=== PATIENT | female | born 1950 | race Caucasian/White ===

== ENCOUNTER 2019-05-16 14:53 | Outpatient (CLI) | payer MEDICARE, OTHER, SELFPAY ==
--- NOTE | ~2019-05-16 | US_ITS ---
EXAMINATION: US soft tissue head and neck DATE: 05/16/2019 15:18 INDICATION: Possible cervical lymphadenopathy with palpable abnormality at the right posterior neck. TECHNIQUE: Multiple grayscale and Doppler ultrasound images of the abdomen were obtained. COMPARISON: None FINDINGS/IMPRESSION: There are a couple small ovoid hypoechoic lesions in the subcutaneous fat at the region of concern at the right neck which measure 4 x 4 x 2 mm and 6 x 3 x 2 mm consistent with normal-sized lymph nodes. Reviewed, dictated and finalized at location A. ENT SUPERVISOR
== END 2019-05-16 14:54 | disposition home or self-care (01) ==
LOC: ANHIMG 14:59
PROVIDERS: PCP Family Medicine; Visit Provider Family Medicine
DX: R22.1 Localized swelling, mass and lump, neck (principal)
CPT/HCPCS: 76536

== ENCOUNTER 2019-11-13 11:26 | Outpatient (CLI) | payer MEDICARE, OTHER, SELFPAY ==
--- NOTE | ~2019-11-13 | MM_ITS ---
EXAMINATION: MM screening digna BI w michelet HISTORY: Screening TECHNIQUE: Craniocaudal and mediolateral oblique 3-D tomosynthesis images were obtained and synthetic 2-D images were generated. CAD analysis was submitted and interpreted. COMPARISON: Comparison to multiple prior studies sequentially, with oldest reviewed study dated 02/17. BREAST PARENCHYMAL COMPOSITION: The breasts are heterogeneously dense, which may obscure small masses . FINDINGS: There is no evidence of suspicious mass, calcification, or architectural distortion to sugg est malignancy in either breast. There has been no suspicious interval change. IMPRESSION: 1. No mammographic evidence of malignancy. 2. Recommend routine screening mammography in one year. BI-RADS Category 1: Negative Reviewed, dictated and finalized at location A.
== END 2019-11-13 11:27 | disposition home or self-care (01) ==
LOC: ANHIMG 11:27
PROVIDERS: PCP Family Medicine; Visit Provider Family Medicine
DX: Z12.31 Encounter for screening mammogram for malignant neoplasm of breast (principal)
CPT/HCPCS: 77063; 77067

== ENCOUNTER 2020-11-18 11:55 | Outpatient (CLI) | payer MEDICARE, OTHER, SELFPAY ==
--- NOTE | ~2020-11-18 | MM_ITS ---
EXAMINATION: MM screening digna BI w michelet HISTORY: Screening TECHNIQUE: Craniocaudal and mediolateral oblique 3-D tomosynthesis images were obtained and synthetic 2-D images were generated. CAD analysis was submitted and interpreted. COMPARISON: Comparison to multiple prior studies sequentially, with oldest reviewed study dated 07/14. BREAST PARENCHYMAL COMPOSITION: The breasts are heterogeneously dense, which may obscure small masses . FINDINGS: There is no evidence of suspicious mass, calcification, or architectural distortion to sugg est malignancy in either breast. There has been no suspicious interval change. IMPRESSION: 1. No mammographic evidence of malignancy. 2. Recommend routine screening mammography in one year. BI-RADS Category 1: Negative Reviewed, dictated and finalized at location D.
== END 2020-11-18 11:56 | disposition home or self-care (01) ==
LOC: ANHIMG 11:57
PROVIDERS: PCP Family Medicine; Visit Provider Family Medicine
DX: Z12.31 Encounter for screening mammogram for malignant neoplasm of breast (principal)
CPT/HCPCS: 77063; 77067

== ENCOUNTER 2020-11-19 13:22 | Outpatient (CLI) | payer MEDICARE, OTHER, SELFPAY ==
--- NOTE | ~2020-11-19 | XR_ITS ---
EXAMINATION: XR abdomen/kub 1V DATE: 11/19/2020 13:40 INDICATION: Low abdominal pain. TECHNIQUE: A supine view of the abdomen on 2 radiographs was obtained. COMPARISON: None. FINDINGS: There are no dilated loops of bowel. There is a large volume of stool in the colon. There a re calcifications in the pelvis measuring up to 3 mm. IMPRESSION: 1. Nonobstructive bowel gas pattern. 2. Small calcifications in the pelvis, which are likely phleboliths. Small distal ureteral stone rachel ot excluded on either side. Reviewed, dictated and finalized at location A. IMPRESSION: 1. Nonobstructive bowel gas pattern. 2. Small calcifications in the pelvis, which are likely phleboliths. Small dist al ureteral stone cannot excluded on either side.
== END 2020-11-19 13:23 | disposition home or self-care (01) ==
PROVIDERS: PCP Family Medicine; Visit Provider Family Medicine
DX: R19.8 Other specified symptoms and signs involving the digestive system and abdomen (principal)
CPT/HCPCS: 74018

== ENCOUNTER 2021-01-28 17:00 | Outpatient (CLI) | payer MEDICARE, OTHER, SELFPAY ==
--- NOTE | ~2021-01-28 | DEXA_ITS ---
Bone Density Report Name: Андрей Martinez Age: 70 Sex: Female Ethnicity: White Date of : 1950 Indication: postmenopausal; asthma or emphysema; Referring Provider: Renae An Study: Bone densitometry was performed. Exam Date: January 28, 2021 Accession number: [id number] Bone Density: Region BMD T-score Z-score Classification AP Spine (L1-L4) 1.030 -0.2 1.8 Normal Femoral Neck (Left) 0.742 -1.0 0.7 Normal Total Hip (Left) 0.911 -0.3 1.1 Normal Total Hip Bilateral Avg 0.894 -0.4 1.0 Normal Femoral Neck (Right) 0.744 -0.9 0.7 Normal Total Hip (Right) 0.877 -0.5 0.9 Normal World Health Organization criteria for BMD impression classify patients as: Normal (T-score at or above -1.0), Osteopenia (T-score between -1.0 and -2.5), or Osteoporosis (T-score at or below -2.5). 10-year Fracture Risk: FRAX not reported because: All T-scores for Spine Total, Hip Total, Femoral Neck at or above -1.0 Previous Exams: Region Exam Age BMD T-score BMD Change BMD Change Date g/cm2 vs Baseline vs Previous AP Spine(L1-L4) 01/28/2021 70 1.030 -0.2 0.019(1.9%)# 0.019(1.9%)# 02/28/2012 61 1.011 -0.3 Total Hip(Left) 01/28/2021 70 0.911 -0.3 -0.070(-7.2%)# -0.056(-5.8%)# 02/28/2012 61 0.967 0.2 -0.014(-1.4%)# -0.014(-1.4%)# 02/19/2009 58 0.981 0.3 Total Hip(Right) 01/28/2021 70 0.877 -0.5 -0.048(-5.1%)# -0.067(-7.1%)# 02/28/2012 61 0.944 0.0 0.020(2.1%)# 0.020(2.1%)# 02/19/2009 58 0.925 -0.1 *Denotes significance at 95% confidence level, LSC for AP Spine = 0.022 g/cm2, LSC for Total Hip = 0.027 g/cm2 Clinical Information Provided by Patient: Has used the following medications: Vitamin D Has the following medical conditions: Asthma or Emphysema Patient maximum height was 61 Menopause Age: 57 No regular weight bearing exercise Drinks caffeinated beverages Onset of menses at age 15 Number of children 4 Impression: The patient has normal bone mass. No significant bone loss was observed. Discussion: BONE DENSITY IS ABOVE THE MINIMUM DESIRABLE LEVEL AT ALL SKELETAL SITES TESTED. This patient?s bone mineral density is above the minimum desirable level (T-score -1.0 or better) at all sites measured. The patient should follow a healthful lifestyle (good nutrition with adequate calcium and vitamin D, and appropriate weight-bearing exercise). Follow-Up: Consider repeating this study in 5 years or sooner if there is some new
== END 2021-01-28 17:01 | disposition home or self-care (01) ==
LOC: ANHIMG 17:02
PROVIDERS: PCP Family Medicine; Visit Provider Family Medicine
DX: M81.0 Age-related osteoporosis without current pathological fracture (principal)
CPT/HCPCS: 77080

== ENCOUNTER → 2021-12-20 11:59 | Outpatient (CLI) | payer MEDICARE, OTHER, SELFPAY ==
--- NOTE | ~2021-12-20 | XR_ITS ---
EXAMINATION: XR chest 2V 12/20/2021 12:12 INDICATION: Shortness of breath PROCEDURE: PA and lateral views of the chest COMPARISON: No prior studies for comparison. FINDINGS: The lungs are clear. The cardiomediastinal silhouette is within normal limits. There are no pleural effusions. There is no pneumothorax suspected. IMPRESSION: 1: NO ACUTE CARDIOPULMONARY DISEASE. Reviewed, dictated and finalized at location A.
== END ==
PROVIDERS: PCP Nurse Practitioner; Visit Provider Nurse Practitioner
DX: R06.02 Shortness of breath (principal)
CPT/HCPCS: 71046

== ENCOUNTER 2022-01-03 09:50 | Outpatient (CLI) | payer MEDICARE, OTHER, SELFPAY ==
--- NOTE | ~2022-01-03 | XR_ITS ---
EXAMINATION: XR UGIAC w barium swallow DATE: 01/03/2022 10:34 INDICATION: Localized swelling, mass, and lump of the neck TECHNIQUE: The patient drank thick barium, gas-producing crystals, and thin barium. Conventional supi ne abdomen radiographs and fluoroscopy of the esophagus, stomach, and proximal small bowel were perfo rmed. Fluoroscopy exposure time was 2.2 minutes. The DAP for this procedure was 8.312 Gycm2. COMPARISON: None. FINDINGS: There is no mass or stricture of the esophagus. Esophageal motility is normal. There is a s mall sliding hiatal hernia. There was no gastroesophageal reflux with provocative maneuvers. The stom ach and proximal small bowel show normal folding patterns. IMPRESSION: 1. Small sliding hiatal hernia, otherwise unremarkable examination. Reviewed, dictated and finalized at location A.
== END 2022-01-03 09:51 | disposition home or self-care (01) ==
PROVIDERS: PCP Nurse Practitioner; Visit Provider Nurse Practitioner Family
DX: R22.1 Localized swelling, mass and lump, neck (principal); K44.9 Diaphragmatic hernia without obstruction or gangrene
CPT/HCPCS: 74246

== ENCOUNTER 2022-01-28 12:31 | Outpatient (CLI) | payer MEDICARE, OTHER, SELFPAY ==
--- NOTE | 2022-01-28 12:41 | ECHO_ITS ---
Patient Info Name: Андрей Martinez Age: 71 years : 1950 Gender: Female Ht: 61 in Wt: 122 lbs BSA: 1.55 m2 HR: 81 bpm BP: 136 / 80 mmHg Technical Quality: Fair Exam Date: 01/28/2022 1:07 PM Exam Location: [facility] Patient Status: Outpatient Admit Date: 01/28/2022 Staff Ordering Physician: Renae An DO Service Unit Operator: Betty Shepherd RDCS Attending Provider: Renae An DO Referring Physician: Nataliya BULLOCK; Exam Type: CA echo doppler color flow Study Info Indications R06.02 - Shortness of breath Complete two-dimensional, color flow and Doppler transthoracic echocardiogram is performed. Summary 1. Complete two-dimensional, color flow and Doppler transthoracic echocardiogram is performed. 2. Left ventricular chamber dimension is normal. 3. Left ventricular systolic function is normal, estimated at 55-60%. 4. The left ventricular diastolic function is abnormal. 5. E/e' 12 is mildly elevated. 6. Global longitudinal strain is abnormal at -13.9%. 7. There is mild aortic valve sclerosis. 8. No pulmonary hypertension, estimated pulmonary arterial systolic pressure is 30 mmHg. Left Ventricle E/e' 12 is mildly elevated. Global longitudinal strain is abnormal at -13.9%. Left ventricular chamber dimension is normal. Left ventricular systolic function is normal, estimated at 55-60%. The left ventricular diastolic function is abnormal. Right Ventricle Right ventricular systolic function is normal and with normal TAPSE 2.4 cm. Right ventricular chamber dimension is normal. Left Atria Left atrial chamber dimension is normal. Right Atria Right atrial chamber dimension is normal. Aortic Valve The aortic valve is trileaflet. There is mild aortic valve sclerosis. There is no aortic valve stenosis. There is no aortic valve regurgitation. Pulmonic Valve There is no pulmonic regurgitation. Mitral Valve There is no mitral valve stenosis. There is no mitral valve regurgitation. Tricuspid Valve There is no tricuspid valve regurgitation. No pulmonary hypertension, estimated pulmonary arterial systolic pressure is 30 mmHg. Pericardium/Pleural There is no pericardial effusion. Inferior Vena Cava Normal inferior vena cava with >50% collapse upon inspiration consistent with normal right atrial pressure, 5 mmHg. Aorta The aortic root size at the sinus of Valsalva is normal. Left Ventricular Outflow Tract Name Value Normal LVOT 2D LVOT Diameter 1.9 cm LVOT Doppler LVOT Peak Gradient 4 mmHg LVOT Mean Gradient 2 mmHg LVOT VTI 21 cm LVOT VTI/AV VTI Ratio 0.9 LVOT Stroke Volume 59 ml LVOT CO 4.7 l/min LVOT CI 3.1 l/min/m2 Pulmonic Valve Name Value Normal RVOT Doppler
--- NOTE | 2022-01-28 16:45 | WPDPFTINT ---
PFT Procedure Performed PFT Procedure Performed Spirometry with Pre/Post Bronchodilator Plethysmography (Lung Vol) Diffusing Cap (DLCO) Flow Vol Loop PFT Interpretation This is a pulmonary function test with pre and post-bronchodilator spirometry, plethysmography and diffusing capacity. The test was performed and results interpreted in accordance with the 2019 and 2005 ATS/ERS Task Force guidelines respectively using the Global Lung Function Initiative-2012 reference equations. Patient demonstrated good effort and cooperation. Reproducibility criteria were met. The quality of the pre bronchodilator spirometry maneuver was Grade A and post bronchodilator spirometry maneuver was Grade A. Findings: Spirometry: There is decreased maximal expiratory airflow at all lung volumes with concave expiratory flow tracing. The contour the inspiratory flow tracing is normal. The pre bronchodilator FVC is 2.04 L, 79% predicted. The pre bronchodilator FEV1 is 1.11 L, 55% predicted. The pre bronchodilator FEV1: FVC ratio is 54%. The post bronchodilator FVC is 2.11 L, representing a 3% increase. The post bronchodilator FEV1 is 1.11 L, representing no change. The post bronchodilator FEV1: FVC ratio is 53%. Plethysmography: The total lung capacity is 4.75 L, 103% predicted. The functional residual volume is 3.11 L, 119% predicted. The residual volume is 2.46 L, 122% predicted. Diffusion capacity: Diffusion capacity unadjusted for hemoglobin and carboxyhemoglobin is 13.7, 71% predicted. Diffusing capacity adjusted for alveolar volume is 4.70, 106% predicted. Impression: There is a moderately severe obstructive abnormality without significant improvement after inhaling a single dose of albuterol. The lung volumes are normal. The diffusing capacity is normal. There are no prior studies for comparison
== END 2022-01-28 12:32 | disposition home or self-care (01) ==
LOC: ANHCARD 12:32
PROVIDERS: PCP Family Medicine; Visit Provider Family Medicine
DX: R06.02 Shortness of breath (principal); R09.02 Hypoxemia; R94.2 Abnormal results of pulmonary function studies
CPT/HCPCS: 93306; 94060; 94726; 94729

== ENCOUNTER 2022-02-18 08:41 | Outpatient (CLI) | payer MEDICARE, OTHER, SELFPAY ==
--- NOTE | ~2022-02-18 | MM_ITS ---
EXAMINATION: MM screening digna BI w michelet HISTORY: Screening mammogram, family history of breast cancer in her mother. TECHNIQUE: Craniocaudal and mediolateral oblique 3-D tomosynthesis images were obtained and synthetic 2-D images were generated. CAD analysis was submitted and interpreted. COMPARISON: 11/18/2020, 11/13/2019, 07/26/2018 BREAST PARENCHYMAL COMPOSITION: There are scattered areas of fibroglandular density. FINDINGS: No suspicious mass, calcification, or architectural distortion are identified in either awa ast to suggest malignancy. There has been no suspicious interval change. IMPRESSION: 1. No mammographic evidence of malignancy. 2. Recommend routine screening mammography in one year. BI-RADS Category 1: Negative Reviewed, dictated and finalized at location A. LOCK OPERATOR
== END 2022-02-18 08:42 | disposition home or self-care (01) ==
LOC: ANHIMG 08:42
PROVIDERS: PCP Family Medicine; Visit Provider Family Medicine
DX: Z12.31 Encounter for screening mammogram for malignant neoplasm of breast (principal)
CPT/HCPCS: 77063; 77067

== ENCOUNTER 2022-03-07 07:51 | Outpatient (CLI) | payer MEDICARE, OTHER, SELFPAY ==
--- NOTE | ~2022-03-07 | CT_ITS ---
CT Scan of the Chest without Contrast: Clinical Indication: Shortness of breath, hypoxia Technique: Contiguous sections were acquired throughout the chest without intravenous contrast. Dose reduction technique was used on this scan by utilizing automated exposure control and iterative recon struction technique. The dose-length product (DLP) was 139.73 mGy-cm. Findings: There is no evidence of any significant mediastinal, hilar or axillary lymphadenopathy. The mediastin al soft tissues appear normal. There is no evidence of pleural or pericardial effusion. There are multiple tiny peripheral pulmonary nodules in the upper lobes, measuring up to 2-3 mm. No o ther pulmonary abnormality seen. Images through the upper abdomen reveal no abnormalities. Impression: Multiple tiny, peripheral pulmonary nodules in the upper lobes. According to Fleischner Society crite geronimo, for a low-risk patient, no further follow-up required. For a high-risk patient, consider 12 ju[address] pablo h follow-up CT. Reviewed, dictated and finalized at location [] DENT PROGRAM SPECIALIST Impression: Multiple tiny, peripheral pulmonary nodules in the upper lobes. According to Fl eischner Society criteria, for a low-risk patient, no further follow-up require d. For a high-risk patient, consider 12 month follow-up CT.
[2022-03-07 08:00] VITALS: PULSE 84; O2SAT 98
[2022-03-07 08:05] VITALS: PULSE 104; O2SAT 98
[2022-03-07 08:15] VITALS: PULSE 88; O2SAT 98
--- NOTE | 2022-03-07 08:17 | HOMEO2EVAL ---
Evaluation was performed at [facility] Home Oxygen Evaluation RC: Home Oxygen (O2) Evaluation Start: 03/07/22 08:15 Freq: Status: Active Protocol: RPE Activity Type Activity Date Activity User E-sign Co-sign Detail Recorded Client Recorded Date Recorded By Document 03/07/22 08:00 [email or web address] [email or web address] 03/07/22 08:17 DJO Document 03/07/22 08:05 [email or web address] [id number] 03/07/22 08:17 DJO Document 03/07/22 08:15 [email or web address] [email or web address] 03/07/22 08:17 DJO 03/07/22 03/07/22 03/07/22 08:00 08:05 08:15 Home O2 Evaluation [Oxygen] -Test Phase Resting Exercise Resting -Oxygen Delivery Room Air Room Air Room Air [Pulse Oximetry] -Pulse Oximetry (90-100 %) 98 98 98 [Pulse Rate] -Pulse Rate (60-100 beats/min) 84 104 H 88 [Evaluation] -Activity Tolerance Excellent [Exercise] -Ambulation Distance (feet) 1,500 -Ambulation Distance (meters) 457.17 [Charges] -Treatment Charges O2 Evaluation - Outpatient
== END 2022-03-07 07:52 | disposition home or self-care (01) ==
PROVIDERS: PCP Family Medicine; Visit Provider Physician Assistant
DX: R94.2 Abnormal results of pulmonary function studies (principal); R09.02 Hypoxemia; R06.02 Shortness of breath; R91.8 Other nonspecific abnormal finding of lung field
CPT/HCPCS: 71250; 94618

== ENCOUNTER 2022-04-06 08:04 | Outpatient (CLI) | payer MEDICARE, OTHER, SELFPAY ==
--- NOTE | 2022-05-09 09:49 | WPDSLEEPSTUD ---
Sleep Study Date of Study: 04/06/22 Ordering Provider: NOMI Cardenas Interpreting Physician: Winter Brown MD Sleep Study Type: Polysomnogram Height: 1.55 m Weight: 56.699 kg Body Mass Index: 23.6 Neck Circumference (inches): 14 [place]: 20 Reason for Sleep Study Hypersomnolence, restless legs syndrome, snoring, poor quality sleep Sleep History Андрей Martinez is a 71-year-old woman who has excessive daytime sleepiness. She has a history of restless legs syndrome and loud snoring. There is a family history of sleep disorders with her father having sleep apnea. She does not awaken from sleep feeling short of breath or awaken at night with heartburn, belching or coughing. She constantly snores loudly enough that others complain about it. She does not have trouble sleeping with a cold. She does not wake up gasping for breath at night. She rarely has breathing problems at night observed by others. She does not sweat excessively at night or notice her heart pounding or beating irregularly at night. She constantly falls asleep and during the day, involuntarily and while driving. She does not have loss of muscle tone with strong emotion. She occasionally has daytime difficulties due to excessive sleepiness. She does not feel paralyzed on waking or falling asleep. She does not have vivid dreamlike scenes on waking or falling asleep. She does not feel afraid to go to sleep. Normal bedtime is 10:00 p.m. falling asleep within 5-10 minutes. She wakes once at night for no apparent reason however is able to return to sleep easily. She does provide care for her 92-year-old mother who wakes up several times. On certain nights. The patient returns to sleep in is able to awaken the morning at 7:00 a.m.. On the weekends she goes to bed at 11:00 p.m. and wakes at 7:00 a.m.. She estimates getting 8-9 interrupted hours of sleep at night. She takes naps in the afternoon or evening. Short naps are not refreshing. She feels better in the morning compared to other times of day. Habits: History of tobacco. Caffeine 2 cups a day. No alcohol or recreational substances. [facility] Past Medical History Medical History Abnormal PFT Avulsion of tendon of finger Bronchitis Encounter for dual-energy x-ray absoptiometry review Essential (primary) hypertension Hepatitis C antibody test negative (06/28/16) Hyperlipidemia Hypoxia Prediabetes Pure hypercholesterolemia Surgical History Surgical History H/O colonoscopy H/O: section Family History Family History Father Diabetes mellitus Hypertension Family history of elevated blood lipids Family history of coronary artery disease Social History Social History Social History: Reports she quit smoking in 1994 - smoked 0.5 up to 1ppd x 10 years. She reports significant secondhand smoke exposure with both parents smoking in her home up until age 20 when she moved out. Denies alcohol or illicit drug use. She is retired from working for [employer] at [employer]. 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 Smoking status: Former smoker Second hand tobacco smoke exposure: No Alcohol intake: never Substance use type: does not use Medications Home Medications Medication Instructions Recorded Confirmed Type Ventolin HFA 90 mcg/actuation 2 puff inhalation Q4H PRN 09/21/21 01/10/22 Rx aerosol inhaler (albuterol sulfate) shortness of breath or wheezing #8 grams atorvastatin 20 mg tablet See Rx Instructions .Route 11/08/21 01/10/22 Rx .COMPLEX #30 tabs estradiol 10 mcg vaginal tablet 10 mcg vaginal WEEKLY #12 tabs 12/31/21 01/10/22 Rx metoprolol tartrate 100 mg tablet 100 mg PO DA
[2022-05-09 12:00] VITALS: BMI 23.6
== END 2022-04-07 06:22 | disposition home or self-care (01) ==
LOC: ANHCSM 08:05
PROVIDERS: PCP Family Medicine; Visit Provider Physician Assistant
DX: G47.33 Obstructive sleep apnea (adult) (pediatric) (principal); Z87.891 Personal history of nicotine dependence; E78.5 Hyperlipidemia, unspecified; I10 Essential (primary) hypertension
CPT/HCPCS: 95810

== ENCOUNTER 2023-03-07 13:51 | Outpatient (CLI) | payer MEDICARE, OTHER, SELFPAY ==
--- NOTE | ~2023-03-07 | CT_ITS ---
EXAMINATION: CT diagnostic chest wo con DATE: 03/07/2023 14:11 INDICATION: Lung nodules TECHNIQUE: Computed tomography (CT) of the chest was performed without intravenous contrast. The dose -length product (DLP) was 77.15 mGy-cm. Automated exposure control and iterative reconstruction techn ique were employed. COMPARISON: 03/07/2022 FINDINGS: A few scattered 2 to 3 mm nodules of the upper lung zones persist without significant mitchell e. No new or suspicious pulmonary nodule is identified. No pleural effusion or pneumothorax. No patho logically enlarged thoracic lymph nodes are identified. The heart size is normal. There is moderate t horacic spondylosis. IMPRESSION: 1. Stable pulmonary nodules most consistent with prior infection/inflammation. No suspicious pulmonar y nodules identified. Reviewed, dictated and finalized at location L. M COACH IMPRESSION: 1. Stable pulmonary nodules most consistent with prior infection/inflammation. No suspicious pulmonary nodules identified.
== END 2023-03-07 13:52 | disposition home or self-care (01) ==
LOC: ANHIMG 13:53
PROVIDERS: PCP Family Medicine; Visit Provider Internal Medicine Critical Care Medicine
DX: R91.8 Other nonspecific abnormal finding of lung field (principal)
CPT/HCPCS: 71250

== ENCOUNTER 2023-04-05 11:58 | Outpatient (CLI) | payer MEDICARE, OTHER, SELFPAY ==
--- NOTE | ~2023-04-05 | MM_ITS ---
EXAMINATION: MM screening digna BI w michelet HISTORY: Screening TECHNIQUE: Craniocaudal and mediolateral oblique 3-D tomosynthesis images were obtained and synthetic 2-D images were generated. CAD analysis was submitted and interpreted. COMPARISON: Comparison to multiple prior studies sequentially, with oldest reviewed study dated 06/02. BREAST PARENCHYMAL COMPOSITION: Breast composed of scattered areas of fibroglandular density FINDINGS: There is no evidence of suspicious mass, calcification, or architectural distortion to sugg est malignancy in either breast. There has been no suspicious interval change. IMPRESSION: 1. No mammographic evidence of malignancy. 2. Recommend routine screening mammography in one year. BI-RADS Category 1: Negative Reviewed, dictated and finalized at location A. ION MECHANIC HELPER
== END 2023-04-05 11:59 | disposition home or self-care (01) ==
LOC: CHSIMG 11:59
PROVIDERS: PCP Family Medicine; Visit Provider Family Medicine
DX: Z12.31 Encounter for screening mammogram for malignant neoplasm of breast (principal)
CPT/HCPCS: 77063; 77067

== ENCOUNTER 2023-06-12 13:10 | Emergency (ER) | payer MEDICARE, OTHER, SELFPAY ==
[2023-06-12 13:16] VITALS: BP 119/78; PULSE 73; RESP 16; TEMP 36.7; O2SAT 100
--- NOTE | 2023-06-12 13:34 | ED.GENADULT ---
HPI - General Adult General Chief complaint: Skin/Abscess/Foreign Body Stated complaint: Shingles/ Boil on leg Source: patient, RN notes reviewed and old records reviewed Mode of arrival: ambulatory Limitations: no limitations History of Present Illness HPI narrative: 72-year-old female presents to [facility] with complaints pain on right back of neck this started last . Patient states in a few days later a rash developed. Patient states does have a history of shingles. Patient also complaining bump on lower right leg that started several days ago and is worsening. Patient denies drainage. Related Data Home Medications Medication Instructions Recorded Confirmed empagliflozin 10 mg tablet 10 mg PO DAILY 02/22/22 06/12/23 (Jardiance) spironolactone 25 mg tablet 25 mg PO DAILY 02/22/22 06/12/23 Allergies Allergy/AdvReac Type Severity Reaction Status Date / Time No Known Allergies Allergy Verified 06/12/23 13:19 Review of Systems Constitutional: Constitutional: Reports no additional constitutional complaints, Denies body ache(s), Denies chills, Denies fatigue, Denies fever(s) and Denies headache(s) Eyes: Eyes: Reports no additional eye complaints and Denies blurry vision ENT: Reports system reviewed and no additional complaints, except as documented, Denies vertigo, Denies dizziness, Denies ear discharge, Denies otalgia, Denies facial pain, Denies headache(s), Denies nasal congestion, Denies nasal discharge, Denies sinus pain, Denies sinus pressure and Denies sore throat Cardiovascular: Cardiovascular: Reports no additional cardiovascular complaints, Denies chest pain, Denies chest pain at rest, Denies rapid heart rate and Denies dyspnea Respiratory: Respiratory: Reports no additional respiratory complaints, Denies chest congestion, Denies cough, Denies pain on inspiration, Denies pain with cough and Denies dyspnea Gastrointestinal: Gastrointestinal: Denies abdominal pain, Denies diarrhea, Denies nausea and Denies vomiting Integumentary/Breasts: Skin/Breast: Reports as per HPI, Reports rash and Reports wounds Neurologic: Reports system reviewed and no additional complaints, except as documented, Denies vertigo, Denies dizziness and Denies headache(s) Endocrine: Endocrine: Denies fatigue PMFSH Past Medical History Medical History Abnormal PFT Avulsion of tendon of finger Bronchitis Encounter for dual-energy x-ray absoptiometry review Essential (primary) hypertension Hepatitis C antibody test negative (06/28/16) Hyperlipidemia Hypoxia Prediabetes Pure hypercholesterolemia Surgical History Surgical History H/O colonoscopy H/O: section Family History Family History Father Diabetes mellitus Hypertension Family history of elevated blood lipids Family history of coronary artery disease Social History Social History Social History: Reports she quit smoking in 1994 - smoked 0.5 up to 1ppd x 10 years. She reports significant secondhand smoke exposure with both parents smoking in her home up until age 20 when she moved out. Denies alcohol or illicit drug use. She is retired from working for [employer] at [employer]. 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 Smoking status: Former smoker Second hand tobacco smoke exposure: No Alcohol intake: never Substance use type: does not use Do You Feel Safe in your Home?: Yes Lack of Transportation: No Lack of Food: Never True Current Housing: I Have Housing Concerned About Future Housing: No Difficulty Paying Gas/Electric Bills: No Difficulty Paying for Meds: No Currently Unemployed: No Education: High School Diploma/GED Difficulty w
== END 2023-06-12 13:41 | disposition home or self-care (01) ==
PROVIDERS: Emergency Provider Registered Nurse; PCP Family Medicine
DX: L02.415 Cutaneous abscess of right lower limb (principal); B02.9 Zoster without complications; Z87.891 Personal history of nicotine dependence; I10 Essential (primary) hypertension; E78.5 Hyperlipidemia, unspecified; R73.03 Prediabetes; E78.00 Pure hypercholesterolemia, unspecified
CPT/HCPCS: 10160; 99213; G0463

== ENCOUNTER → 2023-07-05 14:08 | Outpatient (REF) | payer MEDICARE, OTHER, SELFPAY | LOC: ANHLAB 14:08 | PROVIDERS: PCP Family Medicine; Visit Provider Plastic Surgery | DX: C76.51 Malignant neoplasm of right lower limb (principal) | CPT/HCPCS: 88305 ==

== ENCOUNTER 2024-01-15 01:05 | Day surgery (SDC) | payer MEDICARE, OTHER, SELFPAY ==
[2024-01-02 15:45] VITALS: BMI 23.4
--- NOTE | 2024-01-14 14:56 | P.PNAN_ITS ---
Anes - Eval Pre Procedure Procedure: Operation Date: 01/15/24 08:00 Proposed Procedures p Colonoscopy - Hussain Callaway MD Date/Time: 01/14/24 14:56 Pre Op Diagnosis: hx of colon polyps Patient Data Age: 73 Gender: F Height: 1.55 m Weight: 56.3 kg Allergies Allergy/AdvReac Type Severity Reaction Status Date / Time No Known Allergies Allergy Verified 01/02/24 15:39 Home Medications Medication Instructions Recorded Confirmed Type empagliflozin 10 mg tablet 10 mg PO DAILY 02/22/22 01/02/24 History (Jardiance) spironolactone 25 mg tablet 25 mg PO DAILY 02/22/22 01/02/24 History Ventolin HFA 90 mcg/actuation 2 puff inhalation Q4H PRN 02/01/23 01/02/24 Rx aerosol inhaler (albuterol sulfate) shortness of breath or wheezing #8 grams fluticasone furoate 50 1 inh inhalation DAILY COPD 1 05/07/23 01/02/24 Rx mcg-vilanterol 25 mcg/dose month #60 ea inhalation powder (Breo Ellipta) estradiol 10 mcg vaginal tablet 10 mcg vaginal WEEKLY #12 tabs 05/16/23 01/02/24 Rx amitriptyline 10 mg tablet 20 mg PO QHS #180 tabs 09/18/23 01/02/24 Rx sertraline 25 mg tablet 25 mg PO DAILY #90 tabs 10/16/23 01/02/24 Rx metoprolol tartrate 100 mg tablet See Rx Instructions .Route 10/20/23 01/02/24 Rx .COMPLEX #90 tabs atorvastatin 20 mg tablet 20 mg PO QHS #90 tabs 11/28/23 01/02/24 Rx sertraline 100 mg tablet See Rx Instructions .Route 12/13/23 01/02/24 Rx .COMPLEX #90 tabs clonazepam 1 mg tablet 1 mg PO DAILY PRN anxiety #30 tabs 12/25/23 01/02/24 Rx Patient hx anesthesia problems: none Family hx anesthesia problems: none Results Review: All pre-operative results and documents have been reviewed as part of the pre- operative evaluation. [facility] Past Medical History Medical History Abnormal PFT Avulsion of tendon of finger Bronchitis Encounter for dual-energy x-ray absoptiometry review Essential (primary) hypertension Hepatitis C antibody test negative (06/28/16) Hyperlipidemia Hypoxia Prediabetes Pure hypercholesterolemia Surgical History Surgical History H/O colonoscopy H/O: section Family History Family History Father Diabetes mellitus Hypertension Family history of elevated blood lipids Family history of coronary artery disease Social History Social History Social History: Reports she quit smoking in 1994 - smoked 0.5 up to 1ppd x 10 years. She reports significant secondhand smoke exposure with both parents smoking in her home up until age 20 when she moved out. Denies alcohol or illicit drug use. She is retired from working for [employer] at [employer]. 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 Smoking packs per day: 1 Smoking cigarettes per day: 20.0 Smoking status: Former smoker Tobacco type: cigarettes Second hand tobacco smoke exposure: No Alcohol intake: never Substance use type: does not use Do You Feel Safe in your Home?: Yes Lack of Transportation: No Lack of Food: Never True Current Housing: I Have Housing Concerned About Future Housing: No Difficulty Paying Gas/Electric Bills: No Difficulty Paying for Meds: No Currently Unemployed: No Education: High School Diploma/GED Difficulty w/ Childcare or Family Care: No Living arrangements: with family Spiritual care concerns: No Exam Day of Procedure 01/14/24 14:56
[2024-01-15 06:53] VITALS: BP 140/62; PULSE 100; RESP 18; TEMP 36.1; O2SAT 98
[2024-01-15] MEDS: LACTATED RINGERS 1,000 ML 150 ML IV CONT (07:06)
[2024-01-15 07:08] LABS: Glucose Point of Care 103 mg/dl (65-105)
--- NOTE | 2024-01-15 07:20 | SUR.PREOP ---
DR MUSTAFA NOTIFIED PT HAS COOKIES AT 0800 YESTERDAY, TATER TOTS AT 1000 YESTERDAY, THEN FOLLOWED CLEAR LIQUID DIET AND BOWEL PREP APPROPRIATELY, PT STATES STOOLS ARE LIQUID YELLOW. DR MUSTAFA SAW PT AND NO NEW ORDERS RECEIVED.
--- NOTE | 2024-01-15 07:34 | P.PNAN_ITS ---
Anes - Initial Pre Proc Eval Procedure: Operation Date: 01/15/24 08:00 Proposed Procedures p Colonoscopy - Hussain Callaway MD Date/Time: 01/15/24 07:34 Surgeon: Hussain Callaway MD Pre Op Diagnosis: hx of colon polyps Patient Data Age: 73 Gender: F Height: 1.55 m Weight: 56.6 kg Last Vital Signs Temp 36.1 C L 01/15/24 06:53 Pulse 100 01/15/24 06:53 Resp 18 01/15/24 06:53 BP 140/62 01/15/24 06:53 Pulse Ox 98 01/15/24 06:53 O2 Del Method Room Air 01/15/24 06:53 Allergies Allergy/AdvReac Type Severity Reaction Status Date / Time No Known Allergies Allergy Verified 01/15/24 06:50 Home Medications Medication Instructions Recorded Confirmed Type empagliflozin 10 mg tablet 10 mg PO DAILY 02/22/22 01/15/24 History (Jardiance) spironolactone 25 mg tablet 25 mg PO DAILY 02/22/22 01/15/24 History Ventolin HFA 90 mcg/actuation 2 puff inhalation Q4H PRN 02/01/23 01/15/24 Rx aerosol inhaler (albuterol sulfate) shortness of breath or wheezing #8 grams fluticasone furoate 50 1 inh inhalation DAILY COPD 1 05/07/23 01/15/24 Rx mcg-vilanterol 25 mcg/dose month #60 ea inhalation powder (Breo Ellipta) estradiol 10 mcg vaginal tablet 10 mcg vaginal WEEKLY #12 tabs 05/16/23 01/15/24 Rx amitriptyline 10 mg tablet 20 mg PO QHS #180 tabs 09/18/23 01/15/24 Rx sertraline 25 mg tablet 25 mg PO DAILY #90 tabs 10/16/23 01/15/24 Rx metoprolol tartrate 100 mg tablet See Rx Instructions .Route 10/20/23 01/15/24 Rx .COMPLEX #90 tabs atorvastatin 20 mg tablet 20 mg PO QHS #90 tabs 11/28/23 01/15/24 Rx sertraline 100 mg tablet See Rx Instructions .Route 12/13/23 01/15/24 Rx .COMPLEX #90 tabs clonazepam 1 mg tablet 1 mg PO DAILY PRN anxiety #30 tabs 12/25/23 01/15/24 Rx Laboratory Tests 01/15/24 07:04 POC Capillary Glucose 103 mg/dl (65-105) Patient hx anesthesia problems: none Family hx anesthesia problems: none Results Review: All pre-operative results and documents have been reviewed as part of the pre- operative evaluation. [facility] Past Medical History Medical History Abnormal PFT Avulsion of tendon of finger Bronchitis Encounter for dual-energy x-ray absoptiometry review Essential (primary) hypertension Hepatitis C antibody test negative (06/28/16) Hyperlipidemia Hypoxia Prediabetes Pure hypercholesterolemia Surgical History Surgical History H/O colonoscopy H/O: section Family History Family History Father Diabetes mellitus Hypertension Family history of elevated blood lipids Family history of coronary artery disease Social History Social History Social History: Reports she quit smoking in 1994 - smoked 0.5 up to 1ppd x 10 years. She reports significant secondhand smoke exposure with both parents smoking in her home up until age 20 when she moved out. Denies alcohol or illicit drug use. She is retired from working for [employer] at [employer]. 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 Smoking packs per day: 1 Smoking cigarettes per day: 20.0 Smoking status: Former smoker Tobacco type: cigarettes Second hand tobacco smoke exposure: No Alcohol intake: never Substance use type: does not use Do You Feel Safe in your Home?: Yes Lack of Transportation: No Lack of Food: Never True Current Housing: I Have Housing Concerned About Future Housing: No Difficulty Paying Gas/Electric Bills: No Difficulty Paying for Meds: No Currently Unemployed: No Education: High School Diploma/GED Difficulty w/ Childcare or Family Care: No Living arrangements: with family Spiritual care concerns: No Anes - Eval Final PreProcedure Day of Procedure 01/15/24 07:34 Patient weight: normal Heart: regular rate and rhythm Lungs: decreased breath sounds Airway: Mallampati scale class II Neurological: alert and oriented Last oral intake: >/= 8 hours ASA classification: III Emergent: no Anesthetic plan: proceed Anesthesia type and monitoring: general GIVS and standard monitoring Results Review: All pre-operative results and documents have been reviewed as part of the pre- operative evaluation. Informed Consent: The patient's anesthetic plan and its attendant risks and benefits were discussed with the patient/family/POA. Questions were solicited and answers provided to the satisfaction of the patient/family/POA.
--- NOTE | 2024-01-15 07:52 | PM.IMHP ---
H&P: HPI History of Present Illness Date/Time: 01/15/24 07:52 Chief Complaint: History of colon polyps Narrative: The patient has a history of colonic polyps, the last colonoscopy was 5 years ago. [facility] Past Medical History Medical History Abnormal PFT Avulsion of tendon of finger Bronchitis Encounter for dual-energy x-ray absoptiometry review Essential (primary) hypertension Hepatitis C antibody test negative (06/28/16) Hyperlipidemia Hypoxia Prediabetes Pure hypercholesterolemia Surgical History Surgical History H/O colonoscopy H/O: section Family History Family History Father Diabetes mellitus Hypertension Family history of elevated blood lipids Family history of coronary artery disease Social History Social History Social History: Reports she quit smoking in 1994 - smoked 0.5 up to 1ppd x 10 years. She reports significant secondhand smoke exposure with both parents smoking in her home up until age 20 when she moved out. Denies alcohol or illicit drug use. She is retired from working for [employer] at [employer]. 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 Smoking packs per day: 1 Smoking cigarettes per day: 20.0 Smoking status: Former smoker Tobacco type: cigarettes Second hand tobacco smoke exposure: No Alcohol intake: never Substance use type: does not use Do You Feel Safe in your Home?: Yes Lack of Transportation: No Lack of Food: Never True Current Housing: I Have Housing Concerned About Future Housing: No Difficulty Paying Gas/Electric Bills: No Difficulty Paying for Meds: No Currently Unemployed: No Education: High School Diploma/GED Difficulty w/ Childcare or Family Care: No Living arrangements: with family Spiritual care concerns: No Meds Home Medications and Allergies Home Medications Medication Instructions Recorded Confirmed Type empagliflozin 10 mg tablet 10 mg PO DAILY 02/22/22 01/15/24 History (Jardiance) spironolactone 25 mg tablet 25 mg PO DAILY 02/22/22 01/15/24 History Ventolin HFA 90 mcg/actuation 2 puff inhalation Q4H PRN 02/01/23 01/15/24 Rx aerosol inhaler (albuterol sulfate) shortness of breath or wheezing #8 grams fluticasone furoate 50 1 inh inhalation DAILY COPD 1 05/07/23 01/15/24 Rx mcg-vilanterol 25 mcg/dose month #60 ea inhalation powder (Breo Ellipta) estradiol 10 mcg vaginal tablet 10 mcg vaginal WEEKLY #12 tabs 05/16/23 01/15/24 Rx amitriptyline 10 mg tablet 20 mg PO QHS #180 tabs 09/18/23 01/15/24 Rx sertraline 25 mg tablet 25 mg PO DAILY #90 tabs 10/16/23 01/15/24 Rx metoprolol tartrate 100 mg tablet See Rx Instructions .Route 10/20/23 01/15/24 Rx .COMPLEX #90 tabs atorvastatin 20 mg tablet 20 mg PO QHS #90 tabs 11/28/23 01/15/24 Rx sertraline 100 mg tablet See Rx Instructions .Route 12/13/23 01/15/24 Rx .COMPLEX #90 tabs clonazepam 1 mg tablet 1 mg PO DAILY PRN anxiety #30 tabs 12/25/23 01/15/24 Rx Allergies Allergy/AdvReac Type Severity Reaction Status Date / Time No Known Allergies Allergy Verified 01/15/24 06:50 Vital Signs Vital Signs - 24 hr 01/15/24 06:53 Temperature 97 F L Pulse Rate 100 Respiratory Rate 18 Blood Pressure 140/62 Pulse Oximetry 98 Oxygen Delivery Room Air Assessment and Plan Assessment and plan (1) History of colon polyps: Code(s): Z86.010 - Personal history of colon polyps Status: Acute Plan The patient is deemed a good candidate for the procedure. Consent signed. Will proceed.
[2024-01-15 08:39] VITALS: BP 107/66; PULSE 80; RESP 15; O2SAT 98
[2024-01-15 08:49] VITALS: BP 111/70; PULSE 75; RESP 15; O2SAT 100
[2024-01-15 08:59] VITALS: BP 127/59; PULSE 71; RESP 18; O2SAT 100
== END 2024-01-15 09:08 | disposition home or self-care (01) ==
PROVIDERS: PCP Family Medicine; Referring Provider Family Medicine; Visit Provider Internal Medicine Gastroenterology
PROC: 0DJD8ZZ Inspection of Lower Intestinal Tract, Via Natural or Artificial Opening Endoscopic (ICD-10-PCS; CPT 45378; principal; 2024-01-15 08:00)
DX: Z12.11 Encounter for screening for malignant neoplasm of colon (principal); K62.1 Rectal polyp; D12.0 Benign neoplasm of cecum; K64.1 Second degree hemorrhoids; I10 Essential (primary) hypertension; E78.00 Pure hypercholesterolemia, unspecified; R73.03 Prediabetes; R09.02 Hypoxemia; Z79.84 Long term (current) use of oral hypoglycemic drugs; Z79.51 Long term (current) use of inhaled steroids; Z98.890 Other specified postprocedural states; Z87.891 Personal history of nicotine dependence; Z82.49 Family history of ischemic heart disease and other diseases of the circulatory system
CPT/HCPCS: 45390; 82948; 88305; J2003; J2704; J7120

== ENCOUNTER 2024-05-07 13:52 | Outpatient (CLI) | payer MEDICARE, OTHER, SELFPAY ==
--- NOTE | ~2024-05-07 | MM_ITS ---
EXAMINATION: MM screening digna BI w michelet HISTORY: Screening TECHNIQUE: Craniocaudal and mediolateral oblique 3-D tomosynthesis images were obtained and synthetic 2-D images were generated. CAD analysis was submitted and interpreted. COMPARISON: Comparison to multiple prior studies sequentially, with oldest reviewed study dated 07/14. BREAST PARENCHYMAL COMPOSITION: Dense: The breasts are heterogeneously dense, which may obscure small masses FINDINGS: There are developing asymmetries in the upper inner quadrant of the left breast, middle thi rd. The right breast is stable without evidence for malignancy. IMPRESSION: 1. Developing nodular asymmetries in the upper inner quadrant of the left breast. 2. Additional mammographic views and possible breast ultrasound are recommended. BI-RADS Category 0: Incomplete: Needs additional imaging evaluation. Reviewed, dictated and finalized at location B. UTER OPERATOR IMPRESSION: 1. Developing nodular asymmetries in the upper inner quadrant of the left breas t. 2. Additional mammographic views and possible breast ultrasound are recommended . BI-RADS Category 0: Incomplete: Needs additional imaging evaluation.
--- OUTSIDE RECORDS SUMMARY | 2024-05-07 13:57 | XMS_ITS | Clinical Summary ---
Author Organization [facility] Address [facility] [place] [address] Care Team Providers Care Clinical Asst Name Role Phone Renae An DO Primary Care Provider Allergies No known active allergies Medications atorvastatin 10 MG tablet Take 10 mg by mouth daily. 1 Active clonazePAM 1 MG tablet clonazepam 1 mg tablet TAKE ONE T PO AT BEDTIME Active amitriptyline 10 MG tablet Take 10 mg by mouth daily. 1 Active metoprolol tartrate 100 MG tablet Take 100 mg by mouth daily. 1 Active albuterol sulfate HFA 108 (90 Base) MCG/ACT inhaler Inhale 2 puffs into the lungs every 6 (six) hours as needed for Wheezing. 8 g 1 Active Family History Medical History Relation Comments Hypertension Father Cancer Mother Thyroid Disease Sister Relation Status Comments Father Mother Sister Social History Tobacco Use Types Packs/Day Years Used Date Smoking Tobacco: Former Smokeless Tobacco: Never Tobacco Cessation:Counseling Given: Not Answered Alcohol Use Standard Drinks/Week Comments Not Currently 0 (1 standard drink = 0.6 oz pur e alcohol) Comments No Sex and Gender Information Value Date Recorded Sex Assigned at Not on file Legal Sex Female 5:53 PM CDT Gender Identity Not on file Sexual Orientation Not on file Last Filed Vital Signs Vital Sign Reading Time Taken Comments Blood Pressure 107/62 05/06/2022 12:31 PM MASONRY SUPERVISOR Pulse 105 05/06/2022 12:31 PM MASONRY SUPERVISOR Temperature 37.1 C (98.8 F) 05/06/2022 12:31 PM MASONRY SUPERVISOR Respiratory Rate 22 05/06/2022 12:08 PM MASONRY SUPERVISOR Oxygen Saturation 98% 05/06/2022 12:31 PM MASONRY SUPERVISOR Inhaled Oxygen Concentration - - Weight 56.7 kg (125 lb) 05/06/2022 10:42 AM MASONRY SUPERVISOR Height 154.9 cm (5' 1 ) 05/06/2022 10:42 AM MASONRY SUPERVISOR Body Mass Index 23.62 05/06/2022 10:42 AM MASONRY SUPERVISOR Plan of Treatment Health Maintenance Due Date Last Done Comments Colorectal Cancer Screening Colonoscopy (10 Years) 1952 Hepatitis C 1970 Mammogram Screening 1992 DTaP, Tdap and Td Vaccines ( 1 - Tdap) 10/19/2009 10/18/2009, 10/18/2009 Zoster Vaccines (2 of 2) 10/22/2017 08/27/2017 Annual Medicare Wellness Visit 2017 Dexa Scan (General) 2017 Pneumococcal Vaccine: 65+ Years (2 of 2 - PPSV23 or PCV20) 12/18/2019 12/17/2018 COVID-19 Vaccine (3 - 2023-2 5 season) 2023 06/13/2020, 05/02/2020 Influenza Adult (#1) 2023 02/18/2020, 02/28/2019, 11/19/2015 RSV Immunization or 60+ Years (1 - 1-dose 75+ series) 12/29/2027 Meningococcal B Vaccine Aged Out No l onger eligible based on patient's age to complete this topic Meningococcal Vaccine Aged Out No veronica barrett eligible based on patient's age to complete this topic RSV Immunizations Under 20 Months Aged Out No longer eligible b ased on patient's age to complete this topic Insurance MEDICARE [employer] Care Teams Clinical Asst Relationship Specialty Start Date End Date Renae An DO [address] [place] [address] PCP - General FAMILY PRACTICE 11/04/20
--- OUTSIDE RECORDS SUMMARY | 2024-05-07 13:57 | XMS_ITS | Clinical Summary ---
Author Organization [facility] Address [address] [place] [id number] Care Team Providers Care Diamond Grader Name Role Phone Renae An DO Primary Care Provider [phone] Allergies No known active allergies Medications amitriptyline (ELAVIL) 10 mg tablet Take by mouth nightly 12/23/19 22 Active atorvastatin (LIPITOR) 20 mg tablet Take 0.5 tablets (10 mg total) by mouth daily 02/04/20 22 Active clonazePAM (KlonoPIN) 1 mg tablet Take 1 tablet (1 mg total) by mouth daily as needed 02/05/20 22 Active estradioL (VAGIFEM) 10 mcg tablet INSERT 1 TABLET VAGINALLY WEEKLY 01/01/20 22 Active metoprolol (LOPRESSOR) 100 mg tablet Take 0.5 tablets (50 mg total) by mouth 2 (two) times a day 01/01/20 22 Active sertraline (ZOLOFT) 100 mg tablet Take 1 tablet (100 mg total) by mouth daily 01/15/20 22 Active Ventolin HFA 90 mcg/actuation inhaler INHALE 2 PUFFS BY MOUTH EVERY 4 HOURS NEEDED FOR SHORTNESS OF BREATH OR WHEEZING 12/15/19 22 Active Breo Ellipta 50-25 mcg/dose blister with device INHALE 1 PUFF BY MOUTH DAILY FOR COPD. RINSE AND SPIT AFTER USE 06/08/19 24 Active empagliflozin (Jardiance) 10 mg tablet TAKE 1 TABLET(10 MG) BY MOUTH DAILY 90 tablet 2 10/05/19 24 Active spironolactone (ALDACTONE) 25 mg tablet TAKE 1 TABLET(25 MG) BY MOUTH DAILY 90 tablet 04/23/19 25 Active spironolactone (ALDACTONE) 25 mg tablet TAKE 1 TABLET(25 MG) BY MOUTH DAILY 30 tablet 3 03/26/19 25 025 Discontinued Active Problems No known active problems Medical History Medical History Date Comments Shortness of breath Family History Medical History Relation Name Comments Drug abuse Brother Dementia Father Dementia Mother Murdered Sister Relation Name Status Comments Brother Father Mother Alive Sister Social History Tobacco Use Types Packs/Day Years Used Date Smoking Tobacco: Former Cigarettes 0.5 15 Tobacco Cessation:Counseling Given: Not Answered Personal Safety Answer Date Recorded Getting School Help Needed Not on file 03/12 Comments Unknown Sex and Gender Information Value Date Recorded Sex Assigned at Not on file Legal Sex Female 10:04 AM CDT Gender Identity Not on file Sexual Orientation Not on file Obstetrics History Last Filed Vital Signs Vital Sign Reading Time Taken Comments Blood Pressure 116/60 07/04/2023 10:22 AM CDT Pulse 75 07/04/2023 10:22 AM CDT Temperature - - Respiratory Rate 15 02/07/2022 10:06 AM PRINCIPAL LAW CLERK Oxygen Saturation 96% 07/04/2023 10:22 AM CDT Inhaled Oxygen Concentration - - Weight 55.8 kg (123 lb) 07/04/2023 10:22 AM CDT Height 154.9 cm (5' 1 ) 07/04/2023 10:22 AM CDT Body Mass Index 23.24 07/04/2023 10:22 AM CDT Plan of Treatment Health Maintenance Due Date Last Done Comments Breast Cancer Screening-Mammogram 1950 Colon Cancer Screening-Colonoscopy 1950 Depression Screening 1952 Hepatitis C Screening 1952 Osteoporosis Screening-Bone Density Scan 1952 Hepatitis B Screening 1970 DTaP/Tdap/Td Vaccine (1 - Tdap) 06/25/1999 0 Zoster Vaccine (2 of 2) 10/22/2017 08/27/2017 Well Visit 65+ 2017 Fall Risk Assessment 02/07/2023 02/07/2022 Covid-19 Vaccine (3 - 2023-2 5 season) 2023 06/13/2020, 05/02/2020 Influenza Vaccine (#1) 2023 , 01/15/2021, 02/18/2020, Additional history exists Pneumococcal vaccine 65+ Completed 03/27/2020, 11/20 Insurance MEDICARE [facility] MEDICARE [facility] [place] [address] MEDICARE [employer] ([employer] Address: [address] [address] [facility] Care Teams Diamond Grader Relationship Specialty Start Date End Date Renae An DO PCP - General Family Medicine 02/04/22
--- OUTSIDE RECORDS SUMMARY | 2024-05-07 13:57 | XMS_ITS | Referral Summary ---
Author Organization [facility] Address [address] [place] [id number] Care Team Providers Care Etch Operator [employer]icon[employer] Wafers Name Role Phone Renae An DO Primary Care Provider [phone]- [phone] Allergies No known active allergies Medications amitriptyline [...] Discontinued Active Problems No known active problems Social History Tobacco Use Types Packs/Day Years [...] - Respiratory Rate 15 02/07/2022 10:06 AM TALENT SPECIALIST Oxygen Saturation 96% 07/04/2023 10:22 AM CDT Inhaled Oxygen Concentration - - Weight 55.8 kg (123 lb) 07/04/2023 10:22 AM CDT Height 154.9 cm (5' 1 ) 07/04/2023 10:22 AM CDT Body Mass Index 23.24 07/04/2023 10:22 AM CDT Plan of Treatment [place] [address] MEDICARE [facility] MEDICARE [employer]ICARE [employer] Care Teams Etch Operator Semiconductor Wafers Relationship Specialty Start Date End Date Renae An DO PCP - General Family Medicine 02/04/22
== END 2024-05-07 13:53 | disposition home or self-care (01) ==
LOC: CHSIMG 13:54
PROVIDERS: PCP Family Medicine; Visit Provider Family Medicine
DX: Z12.31 Encounter for screening mammogram for malignant neoplasm of breast (principal); R92.8 Other abnormal and inconclusive findings on diagnostic imaging of breast
CPT/HCPCS: 77063; 77067

== ENCOUNTER 2024-05-14 10:06 | Outpatient (CLI) | payer MEDICARE, OTHER, SELFPAY ==
--- NOTE | ~2024-05-14 | MMUS_ITS ---
EXAMINATION: MM diagnostic digna LT w michelet, US breast LT limited HISTORY: Left breast asymmetry TECHNIQUE: Additional 3-D tomosynthesis images of the left breast were performed and synthetic 2-D im ages were generated. CAD analysis was submitted and interpreted. High resolution limited left breast ultrasound was performed. COMPARISON: 05/07/2024, 04/05/2023 BREAST PARENCHYMAL COMPOSITION:Dense: The breasts are heterogeneously dense, which may obscure small masses. FINDINGS: MAMMOGRAPHIC FINDINGS: Spot compression views demonstrate questionable persistent low-density 4 mm mass at the upper, inner left breast. ULTRASOUND: No convincing sonographic correlate for the mammographic finding seen. No definite mass lesion or dis tortion seen. IMPRESSION: Questionable subtle low-density 4 mm mass at the upper, inner left breast mammographically without d efinite sonographic correlate. Findings are probably benign. Six-month follow-up mammogram/sonogram r ecommended to reassess. BI-RADS category 3, probably benign findings. Reviewed, dictated and finalized at location M. IAL EDUCATION PARAEDUCATOR IMPRESSION: Questionable subtle low-density 4 mm mass at the upper, inner left breast mamm ographically without definite sonographic correlate. Findings are probably dinesh gn. Six-month follow-up mammogram/sonogram recommended to reassess. BI-RADS category 3, probably benign findings.
--- OUTSIDE RECORDS SUMMARY | 2024-05-14 11:46 | XMS_ITS | Clinical Summary ---
Author Organization [facility] Address [facility] [place] [address] Care Team Providers Care Welt Sole Layer Name Role Phone Renae An DO Primary Care Provider [phone] Allergies No known active allergies Medications atorvastatin [...] Comments Blood Pressure 107/62 05/06/2022 12:31 PM SAND TEMPERER Pulse 105 05/06/2022 12:31 PM SAND TEMPERER Temperature 37.1 C (98.8 F) 05/06/2022 12:31 PM SAND TEMPERER Respiratory Rate 22 05/06/2022 12:08 PM SAND TEMPERER Oxygen Saturation 98% 05/06/2022 12:31 PM SAND TEMPERER Inhaled Oxygen Concentration - - Weight 56.7 kg (125 lb) 05/06/2022 10:42 AM SAND TEMPERER Height 154.9 cm (5' 1 ) 05/06/2022 10:42 AM SAND TEMPERER Body Mass Index 23.62 05/06/2022 10:42 AM SAND TEMPERER Plan of Treatment Health Maintenance Due Date [...] age to complete this topic Insurance MEDICARE [employer] [employer] Care Teams Welt Sole Layer Relationship Specialty Start Date End Date Renae An DO [address] [place] [address] PCP - General FAMILY PRACTICE 11/04/20
--- OUTSIDE RECORDS SUMMARY | 2024-05-14 11:46 | XMS_ITS | Data Portability ---
Author Organization [place] [facility] [place] Address [address] [place] [address] Care Team Providers Care Institution Librarian Name Role Phone CHIAN DAMIAN Referring Provider Assessment No assessment recorded. Plan of Treatment Reminders Order Date Submit Date Provider Last Modified By Organization Details Last Modified Time Details Appointments None recorded. Lab rapid strep group A, throat 2015 016 epapan In-Office Order, Internal Use Only DO Not Attach Compendium DO Not Attach Compendium, Do Not Delete/merge, [id number] 11:59:53 Referral None recorded. Procedures None recorded. Surgeries None recorded. Imaging None recorded. Medication Orders amoxicillin 500 mg capsule 2015 016 [id number], [address] [facility], [address], [place], [address], 6 04:12:12 Patient TargetsNo targets recorded. Patient Instructions Encounter Date Encounter Id Patient Instructions Last Modified By Organization Details Last Modified Time 02/25/2016 [id number] Acute Sinusitis: Care Instructions SHARRON Not available 02/28/2016 07:47:40 Reason for Referral None Reported. Results Created Date Observation Date Name Description Value Unit Range Abnormal Flag Note LastModifiedBy Organization Detail LastModifiedTime 02/25/20 16 02/25/2016 rapid strep group A, throa t strept A neg negati ve Not Available In-Office Order Internal Use Only DO Not Attach Compendium DO Not Attach Compendium, Do Not Delete/merge, [id number] 02/25/2016 11:28:52 Result Notes None recorded. Procedures Surgical History Date Name Laterality Status Provider Name and Address Organization Details Recorded Time 1 section completed Criss Mariejose r [facility], [facility] 02/25/2016 11:24:28 Imaging Results None recorded. Procedure Notes None recorded. Medical Equipment None Reported. Allergies No known drug allergies Medications Name Sig Start Date Stop Date Status Note LastModified by Organization Details LastModified Time Hydromet 5 mg-1.5 mg/5 mL oral syrup TK 5 ML PO Q 6 H PRF COUGH active Not Available Not Available No t Available amoxicillin 500 mg capsule TAKE TWO CAPSULES BY MOUTH EVERY 12 HOURS FOR 10 DAYS active Not Available Not Available Not Available clotrimazole 10 mg brad DISSOLVE ONE T IN MOUTH TID active Not Available Not Available No t Available atorvastatin 20 mg tablet TK 1/2 T PO D active Not Available Not Available No t Available azithromycin 250 mg tablet active Not Available Not Available Not Available metoprolol tartrate 100 mg tablet TK ONE T PO D active Not Available Not Available No t Available valacyclovir 1 gram tablet TAKE TWO TS PO AT THE ONSET OF SYMPTOMS AND REPEAT IN TWELVE HOURS active Not Available Not Available No t Available sertraline 100 mg tablet TK 1 T PO D active Not Available Not Available Not Available clonazepam 1 mg tablet TAKE ONE T PO AT BEDTIME active Not Available Not Available No t Available amitriptylin e 10 mg tablet TK 2 TS PO D HS active Not Available Not Available No t Available hydrochlorot hiazide 25 mg tablet TK 1 T PO QD active Not Available Not Available No t Available Ventolin HFA 90 mcg/actuatio n aerosol inhaler INL 2 PFS Q 4 H PRN active Not Available Not Available No t Available neomycin-sd ymyxin-hydro tammy 3.5 mg-10,000 unit/mL-1 % ear drops,susp active Not Available Not Available N ot Available Estrace 0.01% (0.1 mg/gram) vaginal cream INSERT ONE APPLICATORF UL VAGINALLY ONCE A WEEK active Not Available Not Available Not Available Vagifem 10 mcg vaginal tablet INS 1 T VAGINALLY Q WEEK active Not Available Not Available No t Available Vitals Date Recorded Body temperature Body height Body mass index (BMI) Oxygen saturation Oxygen saturation in Arterial blood by Pulse oximetry Respiratory rate Body weight Heart rate Systolic blood pressure Diastolic blood pressure Provider Name and Address Organization Details Last Updated DateTime 6 98.3 [degF] 154.94 cm 25 kg/m2 98 % 98 % 16 /min 30920.9 31544 g 75 /min 124 mm[Hg] 70 mm[Hg] Arelyjuanita Delmer [facility] 6 11:28:52 Social History Question Answer Notes LastModified by Organizat [employer] Details LastModified Time Tobacco Smoking Status [facility]2016 11:28:51 Which Illicit Or Recreational Drugs Have You Used? 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 Occasional Information not available 02/25/2016 Mental Status None recorded. Family History Relationship Description Onset Age of this Age Resolved Age Notes LastModified by Organization Details LastModified Time Mother Alive [email or web address] Not available 10/2015 11:24:28 Father mokada Not available 10/2015 11:24:28 Unspecified Relation Malignant tumor of breast mokada Not available 2015 11:24:28 Medical History Condition Response Hepatitis Y High blood pressure Y Anxiety/Stress Y Chicken Pox Y High Cholesterol Y Gynecological HistoryNo gynecological history recorded. Obstetrics History GPAL:G 0 P 0 0 0 0 Immunizations Vaccine Type Date Status Note Provider Nam e and Address Organization Details Recorded Time tetanus toxoid, not adsorbed 10/18/2009 [facility] 02/25/2016 11:24:28 influenza, unspecified formulation 11/19/2015 [facility] 02/25/2016 11:24:28 Past Encounters Encounter ID Performer Location Encounter Start Date Encounter Closed Date Diagnosis/Indication Diagnosis SNOMED-CT Code Diagnosis ICD10 Code Diagnosis Note [id number] MD [facility] [address] [place] [address] [place] [address] 02/25/2016 10:48:20 02/25/2016 12:11:39 Has a sore throat 499915594 J02.9 Acute sinusitis 93792021 J01.90 Health Concerns Section Related Observation LastModified by Organization Detai ls LastModified Time None Recorded Concern Status LastModified by Organization Details LastModified Time None Recorded Advance Directives Directive None Recorded Payers Encounter Date Sequence Insurance Name Policy Number Policy Graham Covered Member ID Graham Member ID Guarantor Name 02/25/2016 1 [employer] [id number] Андрей Martinez [id number] Андрей Martinez Notes Date Note Type Note Provider Name and Address Organization Details Recorded Time 02/25/2016 text/html SinusitisReporte d bypatient.Reason for visit:acute complaint Location:sinus pain Quality:aching;congest ed;watering Severity:moderate Duration:constant Onset/Timing:gradual; few days Associated Symptoms:nasal discharge; no fever; no nausea or vomitingNotes:gets sinus infections oftenvistiting from CALVIN Damian MD [address] [facility] [address], [place], [address], [facility], [facility] 02/25/2016 12:04:22 OBGyn Episode No OBEpisode recorded.
--- OUTSIDE RECORDS SUMMARY | 2024-05-14 11:46 | XMS_ITS | Clinical Summary ---
Author Organization [facility] Address [address] [place] [address] Care Team Providers Care Front Office Coordinator Name Role Phone Renae An DO Primary Care Provider [phone] Allergies No known active allergies Medications amitriptyline [...] - Respiratory Rate 15 02/07/2022 10:06 AM SHIP'S CAPTAIN Oxygen Saturation 96% 07/04/2023 10:22 AM CDT [...] vaccine 65+ Completed 03/27/2020, 11/20 Insurance MEDICARE [facility] MEDICARE [facility] [place] [address] MEDICARE [facility] Care Teams Front Office Coordinator Relationship Specialty Start Date End Date Renae An DO PCP - General Family Medicine 02/04/22
--- OUTSIDE RECORDS SUMMARY | 2024-05-14 11:46 | XMS_ITS | Referral Summary ---
Author Organization [facility] Address [address] [place] [phone] Care Team Providers Care Slitting Machine Operator Helper Name Role Phone Renae An DO Primary Care Provider [phone]- [phone] Allergies No known active allergies Medications amitriptyline [...] - Respiratory Rate 15 02/07/2022 10:06 AM INSURANCE UNDERWRITER Oxygen Saturation 96% 07/04/2023 10:22 AM CDT Inhaled Oxygen Concentration - - Weight 55.8 kg (123 lb) 07/04/2023 10:22 AM CDT Height 154.9 cm (5' 1 ) 07/04/2023 10:22 AM CDT Body Mass Index 23.24 07/04/2023 10:22 AM CDT Plan of Treatment [place] [address] [place] [address] [facility] MEDICARE [employer] Care Teams Slitting Machine Operator Helper Relationship Specialty Start Date End Date Renae An DO PCP - General Family Medicine 02/04/22
== END 2024-05-14 10:07 | disposition home or self-care (01) ==
PROVIDERS: PCP Family Medicine; Visit Provider Nurse Practitioner
DX: R92.8 Other abnormal and inconclusive findings on diagnostic imaging of breast (principal)
CPT/HCPCS: 76642; 77061; 77065; G0279

== ENCOUNTER 2024-05-22 08:28 | Outpatient (CLI) | payer MEDICARE, OTHER, SELFPAY ==
--- NOTE | ~2024-05-22 | CT_ITS ---
EXAMINATION:CT diagnostic chest wo con DATE: 05/22/2024 08:43 INDICATION: Other nonspecific abnormal finding of lung field. TECHNIQUE: Computed tomography (CT) of the chest was performed without intravenous contrast. Automate d exposure control and iterative reconstruction technique were employed. The dose-length product (DLP ) was 62.05 mGy-cm. COMPARISON: Chest CT 03/07/2023 FINDINGS: There is mild scarring at the lung apices. There is mild emphysema. Again seen are a few sc attered nodules in the lungs measuring up to 4 mm, likely benign. A calcified right lung nodule and c alcified right hilar lymph nodes are consistent with old granulomatous disease. No pleural effusion. The heart size is normal. No pericardial effusion. There is severe thoracic spondylosis. There is mil d chronic anterior wedging of multiple vertebral bodies. IMPRESSION: 1. Stable small pulmonary nodules, likely benign. Reviewed, dictated and finalized at location [] TER PUMP OPERATOR
--- OUTSIDE RECORDS SUMMARY | 2024-05-22 08:42 | XMS_ITS | Referral Summary ---
Author Organization [facility] Address [address] [place] [address] Care Team Providers Care Service Assistant Name Role Phone Renae An DO Primary Care Provider [phone] Allergies No known active allergies Medications amitriptyline [...] - Respiratory Rate 15 02/07/2022 10:06 AM HIM CLERK Oxygen Saturation 96% 07/04/2023 10:22 AM CDT Inhaled Oxygen Concentration - - Weight 55.8 kg (123 lb) 07/04/2023 10:22 AM CDT Height 154.9 cm (5' 1 ) 07/04/2023 10:22 AM CDT Body Mass Index 23.24 07/04/2023 10:22 AM CDT Plan of Treatment [place] [address] [place] [address] [facility] MEDICARE [employer] MEDICARE [employer] Care Teams Service Assistant Relationship Specialty Start Date End Date Renae An DO PCP - General Family Medicine 02/04/22
--- OUTSIDE RECORDS SUMMARY | 2024-05-22 08:42 | XMS_ITS | Clinical Summary ---
Author Organization [facility] Address [address] [place] [address] Care Team Providers Care Lawn Service Worker Name Role Phone Renae An DO Primary Care Provider [phone]- [phone] Allergies No known active allergies Medications amitriptyline [...] - Respiratory Rate 15 02/07/2022 10:06 AM CORE ANALYST Oxygen Saturation 96% 07/04/2023 10:22 AM CDT [...] vaccine 65+ Completed 03/27/2020, 11/20 Insurance MEDICARE [facility] MEDICARE [facility] [place] [address] MEDICARE [facility] Care Teams Lawn Service Worker Relationship Specialty Start Date End Date Renae An DO PCP - General Family Medicine 02/04/22
--- OUTSIDE RECORDS SUMMARY | 2024-05-22 08:42 | XMS_ITS | Clinical Summary ---
Author Organization [facility] Address [facility] [place] [address] Care Team Providers Care Longwall Headgate Operator Name Role Phone Renae An DO Primary Care Provider [phone] Allergies No known active allergies Medications atorvastatin [...] Comments Blood Pressure 107/62 05/06/2022 12:31 PM NEWSAGENT Pulse 105 05/06/2022 12:31 PM NEWSAGENT Temperature 37.1 C (98.8 F) 05/06/2022 12:31 PM NEWSAGENT Respiratory Rate 22 05/06/2022 12:08 PM NEWSAGENT Oxygen Saturation 98% 05/06/2022 12:31 PM NEWSAGENT Inhaled Oxygen Concentration - - Weight 56.7 kg (125 lb) 05/06/2022 10:42 AM NEWSAGENT Height 154.9 cm (5' 1 ) 05/06/2022 10:42 AM NEWSAGENT Body Mass Index 23.62 05/06/2022 10:42 AM NEWSAGENT Plan of Treatment Health Maintenance Due Date [...] age to complete this topic Insurance MEDICARE [employer] Care Teams Longwall Headgate Operator Relationship Specialty Start Date End Date Renae An DO [address] [place] [address] PCP - General FAMILY PRACTICE 11/04/20
== END 2024-05-22 08:29 | disposition home or self-care (01) ==
LOC: ANHIMG 08:30
PROVIDERS: PCP Family Medicine; Visit Provider Family Medicine
DX: R91.8 Other nonspecific abnormal finding of lung field (principal)
CPT/HCPCS: 71250

== ENCOUNTER 2024-06-10 09:10 | Outpatient (CLI) | payer MEDICARE, OTHER, SELFPAY ==
--- NOTE | ~2024-06-10 | MR_ITS ---
MR breast BI wo/w con 06/15/2024 15:26 CDT INDICATION: Unspecified lump in the left breast in the upper inner quadrant. TECHNIQUE: MRI of the breasts perform using standard protocol pre-and post IV contrast with the follo wing sequences: Axial T2 STIR, axial T1, axial vibrant T1 with fat suppression precontrast and multip hasic postcontrast. COMPARISON: Mammogram dated 05/07/2024, diagnostic mammogram and left breast ultrasound dated FINDINGS: There are no abnormalities on the precontrast sequences. There is minimal background parenc hymal enhancement. No enhancing lesions following contrast administration. No areas of enhancement meeting threshold criteria on CAD analysis. No evidence of signal abnormalities in the axillary or i nternal mammary node distributions. LEFT BREAST: No signal abnormalities on precontrast sequences. There is minimal background parenchym al enhancement. No enhancing lesions following contrast administration. No areas of enhancement me eting threshold criteria on CAD analysis. No evidence of signal abnormalities in the axillary or in ternal mammary node distributions.] IMPRESSION: 1: Right breast: Negative. No evidence of malignancy. 2: Left breast: Negative. No evidence of malignancy. Recommendation: Six-month follow-up diagnostic left mammogram and Limited left breast ultrasound isa mmended as discussed on prior diagnostic mammogram report. BI-RADS CATEGORY 3-PROBABLY BENIGN FINDING RECOMMENDATION: 6 month follow up recommended. Reviewed, dictated and finalized at location A. IMPRESSION: 1: Right breast: Negative. No evidence of malignancy. 2: Left breast: Negative. No evidence of malignancy. Recommendation: Six-month follow-up diagnostic left mammogram and Limited left breast ultrasound recommended as discussed on prior diagnostic mammogram report . BI-RADS CATEGORY 3-PROBABLY BENIGN FINDING RECOMMENDATION: 6 month follow up recommended.
--- OUTSIDE RECORDS SUMMARY | 2024-06-10 10:00 | XMS_ITS | Clinical Summary ---
Author Organization [facility] Address [facility] [place] [address] Care Team Providers Care Locomotive Engineer Diesel Name Role Phone Renae An DO Primary Care Provider [phone] Allergies No known active allergies Medications atorvastatin [...] Comments Blood Pressure 107/62 05/06/2022 12:31 PM HUMAN RESOURCE ADVISOR Pulse 105 05/06/2022 12:31 PM HUMAN RESOURCE ADVISOR Temperature 37.1 C (98.8 F) 05/06/2022 12:31 PM HUMAN RESOURCE ADVISOR Respiratory Rate 22 05/06/2022 12:08 PM HUMAN RESOURCE ADVISOR Oxygen Saturation 98% 05/06/2022 12:31 PM HUMAN RESOURCE ADVISOR Inhaled Oxygen Concentration - - Weight 56.7 kg (125 lb) 05/06/2022 10:42 AM HUMAN RESOURCE ADVISOR Height 154.9 cm (5' 1 ) 05/06/2022 10:42 AM HUMAN RESOURCE ADVISOR Body Mass Index 23.62 05/06/2022 10:42 AM HUMAN RESOURCE ADVISOR Plan of Treatment Health Maintenance Due Date [...] age to complete this topic Insurance MEDICARE [employer] Care Teams Locomotive Engineer Diesel Relationship Specialty Start Date End Date Renae An DO [address] [place] [address] PCP - General FAMILY PRACTICE 11/04/20
--- OUTSIDE RECORDS SUMMARY | 2024-06-10 10:00 | XMS_ITS | Referral Summary ---
Author Organization [facility] Address [address] [place] [address] Care Team Providers Care Soaping Department Supervisor Name Role Phone Renae An DO Primary Care Provider [phone] Allergies No known active allergies Medications amitriptyline (ELAVIL) 10 mg tablet Take by mouth nightly 2 Active atorvastatin (LIPITOR) 20 mg tablet Take 0.5 tablets (10 mg total) by mouth daily 2 Active clonazePAM (KlonoPIN) 1 mg tablet Take 1 tablet (1 mg total) by mouth daily as needed 2 Active estradioL (VAGIFEM) 10 mcg tablet INSERT 1 TABLET VAGINALLY WEEKLY 2 Active metoprolol (LOPRESSOR) 100 mg tablet Take 0.5 tablets (50 mg total) by mouth 2 (two) times a day 2 Active sertraline (ZOLOFT) 100 mg tablet Take 1 tablet (100 mg total) by mouth daily 2 Active Ventolin HFA 90 mcg/actuation inhaler INHALE 2 PUFFS BY MOUTH EVERY 4 HOURS NEEDED FOR SHORTNESS OF BREATH OR WHEEZING 2 Active Breo Ellipta 50-25 mcg/dose blister with device INHALE 1 PUFF BY MOUTH DAILY FOR COPD. RINSE AND SPIT AFTER USE 4 Active empagliflozin (Jardiance) 10 mg tablet TAKE 1 TABLET(10 MG) BY MOUTH DAILY 90 tablet 2 4 Active spironolactone (ALDACTONE) 25 mg tablet TAKE 1 TABLET(25 MG) BY MOUTH DAILY 90 tablet 5 Active Active Problems No known active problems Social [...] - Respiratory Rate 15 02/07/2022 10:06 AM REVENUE COORDINATOR Oxygen Saturation 96% 07/04/2023 10:22 AM CDT Inhaled Oxygen Concentration - - Weight 55.8 kg (123 lb) 07/04/2023 10:22 AM CDT Height 154.9 cm (5' 1 ) 07/04/2023 10:22 AM CDT Body Mass Index 23.24 07/04/2023 10:22 AM CDT Plan of Treatment Not on file Insurance MEDICARE [facility] [place] [id number] [place] [address] MEDICARE [employer] [place] [address] MEDICARE [employer] Care Teams Soaping Department Supervisor Relationship Specialty Start Date End Date Renae An DO PCP - General Family Medicine 02/04/22
--- OUTSIDE RECORDS SUMMARY | 2024-06-10 10:00 | XMS_ITS | Clinical Summary ---
Author Organization [facility] Address [address] [place] [phone] Care Team Providers Care Evp Marketing Name Role Phone Renae An DO Primary Care Provider [phone] Allergies No known active allergies Medications amitriptyline [...] Active Active Problems No known active problems Medical [...] - Respiratory Rate 15 02/07/2022 10:06 AM CONTINUOUS MINING MACHINE COMPANY MINER Oxygen Saturation 96% 07/04/2023 10:22 AM CDT [...] Fall Risk Assessment 02/07/2023 02/07/2022 Covid-19 Vaccine ( - 2023-2 5 season) 2023 06/13/2020, 05/02/2020 Influenza Vaccine (#1) 2023 , 01/15/2021, 02/18/2020, Additional history exists Pneumococcal vaccine 65+ Completed 03/27/2020, 11/20 Insurance MEDICARE [employer] MEDICARE [employer] MEDICARE [facility] Care Teams Evp Marketing Relationship Specialty Start Date End Date Renae An DO PCP - General Family Medicine 02/04/22
== END 2024-06-10 09:11 | disposition home or self-care (01) ==
PROVIDERS: PCP Family Medicine; Visit Provider Surgery
DX: R92.8 Other abnormal and inconclusive findings on diagnostic imaging of breast (principal); R92.333 Mammographic heterogeneous density, bilateral breasts; N63.22 Unspecified lump in the left breast, upper inner quadrant
CPT/HCPCS: 77049; A9579; C8908

== ENCOUNTER 2024-06-25 08:58 | Emergency (ER) | payer MEDICARE, OTHER, SELFPAY ==
[2024-06-25 09:06] VITALS: BP 108/83; PULSE 99; RESP 19; TEMP 37.4; O2SAT 100
--- NOTE | 2024-06-25 09:29 | ED.SKABFB ---
HPI - Skin/Abscess/Foreign Bdy General Chief complaint: Skin/Abscess/Foreign Body Stated complaint: TICK BITE Time Seen by Provider: 06/25/24 09:20 Source: patient, RN notes reviewed and old records reviewed Mode of arrival: ambulatory Limitations: no limitations History of Present Illness HPI narrative: 73 year old female presents to [facility] care with complaints of having a tick bite to the left thoracic back area above left flank with part of tick remaining in the skin. Patient reports that she just noticed it this morning and hr daughter attempted to burn it out and then took tweezers and tried to pull it out but has small black area remaining. Patient reports that they have property in [place] and were there this past Monday clearing off the land and assumes that is when she got tick. Patient reports no pain or myalgia. MD complaint: other (tick bite with part of tick remaining in skin) Onset (ago): day(s) (in [facility] on Monday) Location: back (left thoracic back) Severity: mild Treatments prior to arrival: other (attempted to remove tick unable to get head out of skin.) Related Data Home Medications ?Medication ?Instructions ?Recorded ?Confirmed ?Last Taken ?Type empagliflozin 10 mg tablet 10 mg PO DAILY 02/22/22 04/30/24 01/14/24 History (Jardiance) spironolactone 25 mg tablet 25 mg PO DAILY 02/22/22 04/30/24 01/15/24 History atorvastatin 10 mg tablet mg 06/25/24 Unknown History Allergies Allergy/AdvReac Type Severity Reaction Status Date / Time No Known Allergies Allergy Verified 06/25/24 09:05 Review of Systems Review of Systems: CONSTITUTIONAL: Denies fever, chills, or sweats. EYES: Denies visual changes, redness, or discharge. ENT: Denies rhinorrhea, congestion, sore throat, or otalgia. CARDIOVASCULAR: Denies chest pain, palpitations, or edema. RESPIRATORY: Denies cough or dyspnea. GASTROINTESTINAL: Denies abdominal pain, nausea, vomiting, or diarrhea. GENITOURINARY: Denies dysuria or hematuria. SKIN: part of tick in her left thoracic area above left flank area with some redness at site MUSCULOSKELETAL: Denies back pain, joint pain, or myalgia. NEUROLOGIC: Denies headache, numbness, or weakness. PSYCHIATRIC: Reports history of anxiety or depression. All systems reviewed & are unremarkable except as noted in HPI and below PMFSH Past Medical History Medical History Abnormal PFT Hypoxia Bronchitis Hyperlipidemia Avulsion of tendon of finger Encounter for dual-energy x-ray absoptiometry review Hepatitis C antibody test negative (06/28/16) Essential (primary) hypertension Prediabetes Pure hypercholesterolemia Surgical History Surgical History H/O colonoscopy H/O: section Family History Family History Father Diabetes mellitus Hypertension Family history of elevated blood lipids Family history of coronary artery disease Social History Social History Social History: Reports she quit smoking in 1994 - smoked 0.5 up to 1ppd x 10 years. She reports significant secondhand smoke exposure with both parents smoking in her home up until age 20 when she moved out. Denies alcohol or illicit drug use. She is retired from working for [employer] at [employer] [facility] [employer]. 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 Caffeine-daily Smoking packs per day: 1 Smoking cigarettes per day: 20.0 Smoking status: Former smoker Tobacco type: cigarettes Second hand tobacco smoke exposure: No Alcohol intake: never Substance use: never Substance use type: does not use Do You Feel Safe in your Home?: Yes Lack of Transportation: No Lack of Food: Never True Current Housing: I Have Housing Concerned About Future Housing: No Difficulty Paying Gas/Electric Bills: No Difficulty Paying for Meds: No Currently Unemployed: No Education: High School Diploma/GED Difficulty w/ Childcare or Family Care: No Living arrangements: with family Spiritual care concerns: No Comments At time of signature, agree with nursing past medical, surgical, social and family history. There is no relevant family history pertinent to the presenting complaint Exam Narrative: GENERAL: Well-appearing, well-nourished, and in no acute distress. HEAD: Normocephalic, atraumatic. EYES: PERRLA and EOMI. ENT: Nares clear, no rhinorrhea or epistaxis. Mucous membranes moist.TM's normal throat pink with no swelling NECK: Supple. no lymphadenopathy CHEST: Clear to auscultation. No respiratory distress. SAO2 100% on room air HEART: Regular rate and rhythm. No murmur heard. Normal peripheral pulses. ABDOMEN: Soft, nontender, nondistended, normal active bowel sounds. EXTREMITIES: Normal range of motion. No edema. SKIN: Warm, dry, no rash noted, has imbedded part of tick remaining in site to left lateral thoracic area, see procedure noted NEURO: No focal deficits. Alert and oriented x3. Course Course Emergency Course: Patient is aware of diagnosis, understands and agrees to treatment plan.? Anticipatory guidance given.? Patient agrees to follow-up as directed and is aware of reasons to seek care at the emergency department. Portions of this record may have been created with voice recognition software Level of Care: Express Care Visit Vital Signs Vital signs: Vital Signs Temperature 37.4 C 06/25/24 09:06 Pulse Rate 99 06/25/24 09:06 Respiratory Rate 19 06/25/24 09:06 Blood Pressure 108/83 06/25/24 09:06 Pulse Oximetry 100 06/25/24 09:06 Oxygen Delivery Room Air 06/25/24 09:06 Temperature 37.4 C 06/25/24 09:06 Pulse Rate 99 06/25/24 09:06 Respiratory Rate 19 06/25/24 09:06 Blood Pressure 108/83 06/25/24 09:06 Pulse Oximetry 100 06/25/24 09:06 Oxygen Delivery Room Air 06/25/24 09:06 Reviewed Procedures Foreign Body Removal Foreign Body #1: Post-procedure exam: awake, alert Other Procedure Procedure 1: Other Procedure: 921 Tick bite with portion of remaining tick removed using 18 gauze needle and sterile forceps splinter tweezers head of tick removed from skin at bite area on the left lateral thoracic chest area with minimal blood noted. Site cleansed with Alcohol prior to and after removal of portion of tick with triple antibiotic and band-aide applied to site MDM - Skin/Abscess/Foreign Bdy Differential Diagnosis Differential diagnosis: Likely insect bites and other ( imbedded tick, removal of tick, prophylactic doxycycline regimen) Medical Records Attestation: I reviewed the patient's medical records. Critical Care Time Critical Care Time Critical Care Time: No Discharge Plan Discharge Clinical Impression: Tick bite, Tick bite with subsequent removal of tick Patient Disposition: Home Condition: Stable Instructions: Antibiotic Form, Tick Bite (ED) Additional Instructions: Cleanse tick bite site with liquid Dial twice daily apply bacitracin to site and band-aide watch for any increasing infection--redness, swelling, drainage, bulls eye lesion Tylenol or ibuprofen for any fever or pain follow up with PCP in 7-10 days for a wound check recheck if develop fever, chills, increasing symptom Go to the ER if your symptoms become worse of if ANY new symptoms develop Monitor for fevers, chills or any arthralgia If your symptoms persist, change or worsen significantly before you can contact your personal physician then please, without delay, go to the emergency department for further evaluation. Follow-up with PCP in 7-10 days or sooner if needed Follow up with PCP soon in regards to your blood pressure which is elevated above threshold for referral. Blood pressure above 120/80 may indicate pre-hypertension. doxycycline prophylactic x1 dose Patient Language: Australian Prescriptions: New doxycycline monohydrate 100 mg capsule 200 mg PO ONCE Qty: 2 0RF Rx Instructions: take 1 time dose doxycycline 200 mg No Action atorvastatin 10 mg tablet spironolactone 25 mg tablet 25 mg PO DAILY Jardiance 10 mg tablet 10 mg PO DAILY atorvastatin 20 mg tablet 20 mg PO QHS Qty: 90 1RF albuterol sulfate [Ventolin HFA] 90 mcg/actuation HFA aerosol inhaler 2 puff INHALATION Q4H PRN (Reason: shortness of breath or wheezing) Qty: 8 5RF sertraline 25 mg tablet 25 mg PO DAILY Qty: 90 1RF Rx Instructions: take with 100mg to total 125mg daily clonazepam 1 mg tablet 1 mg PO DAILY PRN (Reason: anxiety) Qty: 30 3RF Breo Ellipta 50-25 mcg/dose blister with device 1 inh inhalation DAILY 30 Days Qty: 60 11RF Rx Instructions: rinse and spit after use amitriptyline 10 mg tablet See Rx Instructions .ROUTE .COMPLEX Qty: 180 1RF Dose Instruction: TAKE 2 TABLETS BY MOUTH EVERY DAY AT BEDTIME Rx Instructions: TAKE 2 TABLETS BY MOUTH EVERY DAY AT BEDTIME sertraline 100 mg tablet See Rx Instructions .ROUTE .COMPLEX Qty: 90 0RF Dose Instruction: TAKE 1 TABLET BY MOUTH DAILY Rx Instructions: TAKE 1 TABLET BY MOUTH DAILY metoprolol tartrate 100 mg tablet See Rx Instructions .ROUTE .COMPLEX Qty: 90 1RF Dose Instruction: TAKE 1 TABLET BY MOUTH DAILY Rx Instructions: TAKE 1 TABLET BY MOUTH DAILY Follow-up/Referrals: Renae An DO [Primary Care Provider] - Time of Disposition: 09:37 Quality Blaine Coma Scale Eyes: Open Verbal: Oriented and Alert Motor: Follows Commands Twain Coma Total Score: 15
== END 2024-06-25 09:38 | disposition home or self-care (01) ==
PROVIDERS: Emergency Provider Registered Nurse; PCP Family Medicine
DX: S20.462A Insect bite (nonvenomous) of left back wall of thorax, initial encounter (principal); W57.XXXA Bitten or stung by nonvenomous insect and other nonvenomous arthropods, initial encounter; Z87.891 Personal history of nicotine dependence; I10 Essential (primary) hypertension; E78.00 Pure hypercholesterolemia, unspecified; E78.5 Hyperlipidemia, unspecified; R73.03 Prediabetes
CPT/HCPCS: 99213; G0463

== ENCOUNTER 2024-10-08 08:21 | Outpatient (CLI) | payer MEDICARE, OTHER, SELFPAY ==
--- OUTSIDE RECORDS SUMMARY | 2024-09-30 07:41 | XMS_ITS | Clinical Summary ---
Author Organization [facility] Address [address] [place] [address] Care Team Providers Care Weapons System Instrument Mechanic Name Role Phone AloopalRenae coe Primary Care Provider [phone]- [phone] Allergies No known active allergies Medications amitriptyline (ELAVIL) 10 mg tablet Take by mouth nightly 2 Active atorvastatin (LIPITOR) 20 mg tablet Take 0.5 tablets (10 mg total) by mouth daily 2 Active clonazePAM (KlonoPIN) 1 mg tablet Take 1 tablet (1 mg total) by mouth daily as needed 2 Active estradioL (VAGIFEM) 10 mcg tablet INSERT 1 TABLET VAGINALLY WEEKLY 2 Active sertraline (ZOLOFT) 100 mg tablet [...] TABLET(10 MG) BY MOUTH DAILY 90 tablet 5 Active spironolactone (ALDACTONE) 25 mg tablet TAKE 1 TABLET(25 MG) BY MOUTH DAILY 90 tablet 5 Active budesonide-form oteroL (SYMBICORT) 160-4.5 mcg/actuation inhaler 2 Active amLODIPine (NORVASC) 10 mg tablet Take 1 tablet (10 mg total) by mouth daily 90 tablet 6 5 09/26/19 26 Active metoprolol (LOPRESSOR) 100 mg tablet Take 0.5 tablets (50 mg total) by mouth 2 (two) times a day 2 09/26/19 25 Discontinu ed(Alterna te therapy) Active Problems No known active problems Encounters Date Type Department Care Team Description 09/25/2024 9:15 AM CDT Office Visit [facility] Cardiology [address] [place] [address] David Ivory MD Essential hypertension (Primary Dx); Diastolic dysfunction; Chronic obstructive pulmonary disease, unspecified COPD type (HCC); Lipid screening from Last 3 Months Surgical History Surgery Date Site/Laterality Comments SECTION 03/1990 Medical History Medical History Date Comments Shortness of breath Sleep apnea 2021 Heart disease 01/2023 Hypertension 1992 Depression 1999 Chronic bronchitis (HCC) 02/2023 Family History Medical History Relation Name Comments Drug abuse Brother Dementia Father Hypertension Father Arthritis Mother Dementia Mother Murdered Sister Relation Name Status Comments Brother Father Mother Sister Social History Tobacco Use Types Packs/Day Years Used Date Smoking Tobacco: Former Cigarettes 0.5 30.4 0 04/03/1974 - 08/18/1989 Comments Unknown Sex and Gender Information Value Date Recorded Sex Assigned at Not on file Legal Sex Female 10:04 AM CDT Gender Identity Not on file Sexual Orientation Not on file Obstetrics History Last Filed Vital Signs Vital Sign Reading Time Taken Comments Blood Pressure 118/64 09/25/2024 9:17 AM CDT Pulse 82 09/25/2024 9:17 AM CDT Temperature - - Respiratory Rate 15 02/07/2022 10:06 AM IC DESIGN ENGINEER Oxygen Saturation 96% 09/25/2024 9:17 AM CDT Inhaled Oxygen Concentration - - Weight 59.4 kg (131 lb) 09/25/2024 9:17 AM CDT Height 154.9 cm (5' 1) 09/25/2024 9:17 AM CDT Body Mass Index 24.75 09/25/2024 9:17 AM CDT Plan of Treatment Health Maintenance [...] season) 2023 06/13/2020, 05/02/2020 Influenza Vaccine (#1) 2024 , 01/15/2021, 02/18/2020, Additional history exists Pneumococcal vaccine 65+ Completed 03/27/2020, 11/20 Procedures Procedure Name Priority Date/Time Associated Diagnosis Comments POCT LIPID PANEL Routine 09/25/2024 9:23 AM CDT Lipid screening from Last 3 Months Results * (ABNORMAL) POCT lipid panel (09/25/2024 9:23 AM CDT) Cholesterol, POC 152 <200 MG/DL HDL, POC 53 >=40 mg/dL Triglycerides, POC 151(A) <=149 mg/dL LDL Cholesterol POC 68 <=129 mg/dL Chol/HDL Ratio, POC 1.3 NONE Non-HDL Cholesterol, POC 98 NONE mg/dL Cholesterol Total, POC 152 30 - 199 mg/dL Capillary blood 09/25/2024 9 :23 AM CDT David Ivory MD POINT OF CARE TEST ORDERABLES Fi nal Result from Last 3 Months Insurance MEDICARE [employer] [employer] [place] Member Subscriber Plan / Payer (Ef fective 2017-Present) Name:Juan Андрей Bee Relation to Subscriber:Self Name:Juan Андрей Bee Payer ID:[id number] Group ID:Not on file Type:24/7 Card Address: [address] [facility] [place] [address] [place] [address] [place] [address] MEDICARE [employer] Member Subscriber Plan / Payer (Ef fective 2017-Present) Name:JuanZaylatoya Bee Relation to Subscriber:Self Name:Андрей Martinez Payer ID:[id number] Group ID:Not on file Type:24/7 Card Address: [address] [place] [id number] Care Teams Weapons System Instrument Mechanic Relationship Specialty Start Date End Date Renae An DO PCP - General Family Medicine 02/04/22
--- OUTSIDE RECORDS SUMMARY | 2024-09-30 07:41 | XMS_ITS | Referral Summary ---
Author Organization [facility] Address [address] [place] [address] Care Team Providers Care Senior Naval Parachutist Name Role Phone Renae An DO Primary Care Provider [phone]- [phone] Encounters Date Type Department Care Team Description 09/25/2024 9:15 AM CDT Office Visit [facility] Medical [facility] Cardiology [address] [facility] [address] [place] [address] David Ivory MD Essential hypertension (Primary Dx); Diastolic dysfunction; Chronic obstructive pulmonary disease, unspecified COPD type (HCC); Lipid screening from Last 3 Months Allergies No known active allergies Medications amitriptyline [...] therapy) Active Problems No known active problems Social [...] - Respiratory Rate 15 02/07/2022 10:06 AM ENGRAVER HAND HARD METALS Oxygen Saturation 96% 09/25/2024 9:17 AM CDT Inhaled Oxygen Concentration - - Weight 59.4 kg (131 lb) 09/25/2024 9:17 AM CDT Height 154.9 cm (5' 1) 09/25/2024 9:17 AM CDT Body Mass Index 24.75 09/25/2024 9:17 AM CDT Plan of Treatment Not on file Procedures Procedure Name Priority Date/Time Associated Diagnosis [...] Result from Last 3 Months Insurance MEDICARE [facility] [place] [id number] [place] [address] MEDICARE [employer] [place] Care Teams Senior Naval Parachutist Relationship Specialty Start Date End Date Renae An DO PCP - General Family Medicine 02/04/22
--- OUTSIDE RECORDS SUMMARY | 2024-09-30 07:42 | XMS_ITS | Data Portability ---
Author Organization ID - [employer], [employer], [facility] Address [address] [place] [address] Care Team Providers Care Projection Welding Machine Operator Name Role Phone CHINA DAMIAN Referring Provider Assessment No assessment recorded. Plan of Treatment Reminders Order Date Submit Date Provider Last Modified By Organization Details Last Modified Time Details Appointments None recorded. Lab rapid strep group A, throat 2015 016 epapan In-Office Order, Internal Use Only DO Not Attach Compendium DO Not Attach Compendium, Do Not Delete/merge, [id number] 11:59:53 Referral None recorded. Procedures None recorded. Surgeries None recorded. Imaging None recorded. Medication Orders amoxicillin 500 mg capsule 2015 016 [id number], [address] [facility], [address], [place], [address], 6 04:12:12 Patient TargetsNo targets recorded. Patient Instructions Encounter Date Encounter Id Patient Instructions Last Modified By Organization Details Last Modified Time 02/25/2016 [id number] Acute Sinusitis: Care Instructions SHARRON Not available 02/28/2016 07:47:40 Reason for Referral None Reported. Results Created Date Observation Date Name Description Value Unit Range Abnormal Flag Note LastModifiedBy Organization Detail LastModifiedTime 02/25/20 16 02/25/2016 rapid strep group A, throa t strept A neg negati ve Not Available In-Office Order Internal Use Only DO Not Attach Compendium DO Not Attach Compendium, Do Not Delete/merge, [id number] 02/25/2016 11:28:52 Result Notes None recorded. Procedures Surgical History Date Name Laterality Status Provider Name and Address Organization Details Recorded Time 1 section completed Criss Dowell [facility] - [facility], [facility] 02/25/2016 11:24:28 Imaging Results None recorded. Procedure Notes None recorded. Medical Equipment None Reported. Allergies No known drug allergies Medications Name Sig Start Date Stop Date Status Note LastModified by Organization Details LastModified Time Hydromet 5 mg-1.5 mg/5 mL oral solution TK 5 ML PO Q 6 H [...] Respiratory rate Body weight Heart rate Systolic And Diastolic Provider Name and Address Organization Details Last Updated DateTime 6 98.3 [degF] 154.94 cm 25 kg/m2 98 % 98 % 16 /min 56454.9 28063 g 75 /min 124/70 mm[Hg] Arelyjuanita Delmer [facility] 6 11:28:52 Social History Question Answer Notes LastModified by [facility] Details LastModified Time Tobacco Smoking Status [facility] 02/25/2016 11:28:51 Which Illicit Or Recreational Drugs Have You Used? 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 Occasional Information [...] tetanus toxoid, not adsorbed 10/18/2009 [facility] 02/25/2016 11:24:28 influenza, unspecified formulation 11/19/2015 [facility] 02/25/2016 11:24:28 Past Encounters Encounter ID Performer Location Encounter Start Date Encounter Closed Date Diagnosis/Indication Diagnosis SNOMED-CT Code Diagnosis ICD10 Code Diagnosis Note [id number] MD [facility] [address] [place] [address] [place] [address] 02/25/2016 10:48:20 02/25/2016 12:11:39 Has a sore throat 176813389 J02.9 Acute sinusitis 26514853 J01.90 Health Concerns Section Related Observation LastModified by Organization Detai ls LastModified Time None Recorded Concern Status LastModified by Organization Details LastModified Time None Recorded Advance Directives Directive None Recorded Payers Insurance Date Sequence Insurance Name Policy Number Policy Graham Covered Member ID Graham Member ID Guarantor Name 02/25/2016 1 [facility] [id number] Андрей Martinez [id number] Андрей Martinez Notes Date Note Type Note Provider Name and Address Organization Details Recorded Time 02/25/2016 text/html SinusitisReporte d bypatient.Reason for visit:acute complaint Location:sinus pain Quality:aching;congest ed;watering Severity:moderate Duration:constant Onset/Timing:gradual; few days Associated Symptoms:nasal discharge; no fever; no nausea or vomitingNotes:gets sinus infections oftenvistiting from CALVIN Damian MD [address], [place], [address], [facility] - [facility], [facility] 02/25/2016 12:04:22 OBGyn Episode No OBEpisode recorded.
--- OUTSIDE RECORDS SUMMARY | 2024-09-30 07:42 | XMS_ITS | Clinical Summary ---
Author Organization [facility] Address [facility] [place] [address] Care Team Providers Care Radiologic Technology Teacher Name Role Phone Renae An DO Primary Care Provider [phone] Allergies No known active allergies Medications atorvastatin [...] Comments Blood Pressure 107/62 05/06/2022 12:31 PM ENGINE MANAGER Pulse 105 05/06/2022 12:31 PM ENGINE MANAGER Temperature 37.1 C (98.8 F) 05/06/2022 12:31 PM ENGINE MANAGER Respiratory Rate 22 05/06/2022 12:08 PM ENGINE MANAGER Oxygen Saturation 98% 05/06/2022 12:31 PM ENGINE MANAGER Inhaled Oxygen Concentration - - Weight 56.7 kg (125 lb) 05/06/2022 10:42 AM ENGINE MANAGER Height 154.9 cm (5' 1) 05/06/2022 10:42 AM ENGINE MANAGER Body Mass Index 23.62 05/06/2022 10:42 AM ENGINE MANAGER Plan of Treatment Health Maintenance Due Date Last Done Comments Colorectal Cancer Screening Colonoscopy (10 Years) 1952 Hepatitis C 1970 Mammogram Screening 1992 DTaP, Tdap and Td Vaccines ( 1 - Tdap) 10/19/2009 10/18/2009, 10/18/2009 Zoster Vaccines (2 of 2) 10/22/2017 08/27/2017 Annual Medicare Wellness Visit 2017 Dexa Scan (General) 2017 Pneumococcal Vaccine: 50+ Years (2 of 2 - PPSV23) 12/18/2019 12/17/2018 COVID-19 Vaccine (3 - 2023-2 5 season) 2023 06/13/2020, 05/02/2020 RSV Immunization or 60+ Years (1 - [...] age to complete this topic Insurance MEDICARE [employer] Care Teams Radiologic Technology Teacher Relationship Specialty Start Date End Date Renae An DO [address] [place] [address] PCP - General FAMILY PRACTICE 11/04/20
--- OUTSIDE RECORDS SUMMARY | 2024-09-30 09:32 | XMS_ITS | Referral Summary ---
Author Organization [facility] Address [address] [place] [address] Care Team Providers Care Towel Hemmer Name Role Phone Renae An DO Primary Care Provider [phone] Encounters Date Type Department Care Team Description 09/25/2024 9:15 AM CDT Office Visit [facility] Cardiology [address] [place] [address] David Ivory MD Essential hypertension [...] - Respiratory Rate 15 02/07/2022 10:06 AM RN PSYCH Oxygen Saturation 96% 09/25/2024 9:17 AM CDT [...] Result from Last 3 Months Insurance MEDICARE [facility] [place] [id number] MEDIC[place] [address] MEDICARE [place] [employer] [place] Care Teams Towel Hemmer Relationship Specialty Start Date End Date Renae An DO PCP - General Family Medicine 02/04/22
--- OUTSIDE RECORDS SUMMARY | 2024-09-30 09:32 | XMS_ITS | Clinical Summary ---
Author Organization [facility] Address [address] [place] [address] Care Team Providers Care Sports Equipment Repairer Name Role Phone AloopalRenae coe Primary Care Provider [phone]- [phone] Allergies No known active allergies Medications amitriptyline [...] Description 09/25/2024 9:15 AM CDT Office Visit [facility] Cardiology [address] [place] [address] David Ivory MD Essential hypertension [...] - Respiratory Rate 15 02/07/2022 10:06 AM PLUG MAKER Oxygen Saturation 96% 09/25/2024 9:17 AM CDT [...] Result from Last 3 Months Insurance MEDIC[place] [address] [place] [address] MEDICARE [employer] Care Teams Sports Equipment Repairer Relationship Specialty Start Date End Date Renae An DO PCP - General Family Medicine 02/04/22
--- OUTSIDE RECORDS SUMMARY | 2024-10-08 08:26 | XMS_ITS | Clinical Summary ---
Author Organization [facility] Address [address] [place] [address] Care Team Providers Care Commercial Loan Analyst Name Role Phone AloopalRenae coe Primary Care Provider [phone]- [phone] Allergies No known active allergies Medications amitriptyline [...] Description 09/25/2024 9:15 AM CDT Office Visit [facility] Cardiology [address] [place] [address] David Ivory MD Essential hypertension [...] - Respiratory Rate 15 02/07/2022 10:06 AM BARRER AND TACKER Oxygen Saturation 96% 09/25/2024 9:17 AM CDT [...] Result from Last 3 Months Insurance MEDICARE [place] [address] MEDIC[place] [address] MEDICARE [employer] [place] Care Teams Commercial Loan Analyst Relationship Specialty Start Date End Date Renae An DO PCP - General Family Medicine 02/04/22
--- OUTSIDE RECORDS SUMMARY | 2024-10-08 08:26 | XMS_ITS | Clinical Summary ---
Author Organization [facility] Address [facility] [place] [address] Care Team Providers Care Railroad Car Letterer Name Role Phone Renae An DO Primary Care Provider [phone] Allergies No known active allergies Medications atorvastatin [...] Comments Blood Pressure 107/62 05/06/2022 12:31 PM SALES AND SERVICE ASSOCIATE Pulse 105 05/06/2022 12:31 PM SALES AND SERVICE ASSOCIATE Temperature 37.1 C (98.8 F) 05/06/2022 12:31 PM SALES AND SERVICE ASSOCIATE Respiratory Rate 22 05/06/2022 12:08 PM SALES AND SERVICE ASSOCIATE Oxygen Saturation 98% 05/06/2022 12:31 PM SALES AND SERVICE ASSOCIATE Inhaled Oxygen Concentration - - Weight 56.7 kg (125 lb) 05/06/2022 10:42 AM SALES AND SERVICE ASSOCIATE Height 154.9 cm (5' 1) 05/06/2022 10:42 AM SALES AND SERVICE ASSOCIATE Body Mass Index 23.62 05/06/2022 10:42 AM SALES AND SERVICE ASSOCIATE Plan of Treatment Health Maintenance Due Date [...] [employer] Care Teams Railroad Car Letterer Relationship Specialty Start Date End Date Renae An DO [address] [place] [address] PCP - General FAMILY PRACTICE 11/04/20
--- OUTSIDE RECORDS SUMMARY | 2024-10-08 08:26 | XMS_ITS | Data Portability ---
Author Organization [place] [facility] [employer], [facility] Address [address] [place] [address] Care Team Providers Care Senior Architectural Designer Name Role Phone CHINA DAMIAN Referring Provider Assessment No assessment recorded. Plan of Treatment Reminders Order Date Submit Date Provider Last Modified By Organization Details Last Modified Time Details Appointments None recorded. Lab rapid strep group A, throat 2015 016 epapan In-Office Order, Internal Use Only DO Not Attach Compendium DO Not Attach Compendium, Do Not Delete/merge, [id number] 11:59:53 Referral None recorded. Procedures None recorded. Surgeries None recorded. Imaging None recorded. Medication Orders amoxicillin 500 mg capsule 2015 016 [id number] [place], [address] [facility], [address], [place], [address], 6 04:12:12 Patient TargetsNo targets recorded. Patient Instructions Encounter Date Encounter Id Patient Instructions Last Modified By Organization Details Last Modified Time 02/25/2016 [id number] Acute Sinusitis: Care Instructions SHARRON Not available 02/28/2016 07:47:40 Reason for Referral None Reported. Results Created Date Observation Date Name Description Value Unit Range Abnormal Flag Note LastModifiedBy Organization Detail LastModifiedTime 02/25/20 16 02/25/2016 rapid strep group A, throa t strept A neg negati ve Not Available In-Office Order Internal Use Only DO Not Attach Compendium DO Not Attach Compendium, Do Not Delete/merge, [id number] 02/25/2016 11:28:52 Result Notes None recorded. Procedures Surgical History Date Name Laterality Status Provider Name and Address Organization Details Recorded Time 1 section completed Criss Dowell [facility] - [facility], [facility] 02/25/2016 11:24:28 Imaging Results None recorded. [...] kg/m2 98 % 98 % 16 /min 91925.9 47318 g 75 /min 124/70 mm[Hg] Arelyjuanita Delmer [facility] 6 11:28:52 Social History Question Answer Notes LastModified by [employer] Details LastModified Time Tobacco Smoking Status [facility] 02/25/2016 11:28:51 Which Illicit Or Recreational Drugs Have You Used? None Information not available 02/25/2016 Alcohol Use No Information n ot available 02/25/2016 Year Quit Tobacco Use 1970 Information not available 02/25/2016 Sex: Unknown Functional Status Question Answer Note LastModified by [employer] Details LastModified Time What is your occupation? [...] tetanus toxoid, not adsorbed 10/18/2009 [facility] 02/25/2016 11:24:28 influenza, unspecified formulation 11/19/2015 [facility] 02/25/2016 11:24:28 Past Encounters Encounter ID Performer Location Encounter Start Date Encounter Closed Date Diagnosis/Indication Diagnosis SNOMED-CT Code Diagnosis ICD10 Code Diagnosis Note [id number] MD [facility] [address] [place] [address] [place] [address] 02/25/2016 10:48:20 02/25/2016 12:11:39 Has a sore throat 967235618 J02.9 Acute sinusitis 69855203 J01.90 Health Concerns Section Related Observation LastModified by Organization Detai ls LastModified Time None Recorded Concern Status LastModified by Organization Details LastModified Time None Recorded Advance Directives Directive None Recorded Payers Insurance Date Sequence Insurance Name Policy Number Policy Graham Covered Member ID Graham Member ID Guarantor Name 02/25/2016 1 [facility] [id number] Андрей Martinez [id number] Андрей Martinez Notes Date Note Type Note Provider Name and Address Organization Details Recorded Time 02/25/2016 text/html SinusitisReporte d bypatient.Reason for visit:acute complaint Location:sinus pain Quality:aching;congest ed;watering Severity:moderate Duration:constant Onset/Timing:gradual; few days Associated Symptoms:nasal discharge; no fever; no nausea or vomitingNotes:gets sinus infections oftenvistiting from CALVIN Damian MD [address] [facility] [address], [place], [address], [facility] - [facility], [facility] 02/25/2016 12:04:22 OBGyn Episode No OBEpisode recorded.
--- OUTSIDE RECORDS SUMMARY | 2024-10-08 08:26 | XMS_ITS | Referral Summary ---
Author Organization [facility] Address [address] [place] [address] Care Team Providers Care Online Communications Specialist Name Role Phone Renae An DO Primary Care Provider [phone] Encounters Date Type Department Care Team Description 09/25/2024 9:15 AM CDT Office Visit [facility] Cardiology [address] [facility] [address] [place] [address] David Ivory MD Essential hypertension [...] - Respiratory Rate 15 02/07/2022 10:06 AM WREATH AND GARLAND MAKER HAND Oxygen Saturation 96% 09/25/2024 9:17 AM CDT [...] Result from Last 3 Months Insurance MEDICARE [facility] [place] [id number] MEDIC[place] [address] MEDICARE [place] [facility] [place] Care Teams Online Communications Specialist Relationship Specialty Start Date End Date Renae An DO PCP - General Family Medicine 02/04/22
[2024-10-30 16:20] VITALS: BMI 22.6
--- NOTE | 2024-10-30 16:20 | WPDHOMESLEEP ---
Sleep Study - Home Unattended Date of Study: 10/08/24 Ordering Provider: Alyssa Elder DO Interpreting Provider: Alyssa Elder DO Home Sleep Study Type: Watch PAT Height: 1.55 m Weight: 54.431 kg Body Mass Index: 22.6 Neck Circumference (inches): 14 [place]: 16 Reason for Sleep Study Re-evaluation of REN while using MAD Sleep History The patient is a 73-year-old female who had a repeat home sleep study ordered for evaluation of individual advancement device efficacy. The patient admits to snoring loudly as well as excessive daytime sleepiness. She denies interruptions in breathing while asleep. She denies choking or gasping at night. She denies having trouble breathing on her back. She denies morning headaches. She does have a dry or sore mouth in the morning. She denies nocturnal heartburn. She denies nocturia. She denies having difficulty falling or staying asleep. She denies having difficulty returning to sleep if she wakes up throughout the night. She denies any hypnotic or sedative use. She denies feeling anxious about sleep. She does feel tired or sleepy during the day. She denies feeling tired in the morning. She does have the urge to fall asleep during the day. She does feel drowsy while driving. She denies sleep paralysis, cataplexy, and hypnagogic or hypnopompic hallucinations. She denies clenching or grinding her teeth. She denies kicking or jerking her legs excessively. She denies having a restless feeling in her legs. She goes to bed at 10:30 p.m. every night. It takes her 15 minutes to fall asleep. She gets 8.5 hours of sleep per night. Her sleep is a little more restorative on days off. She does take a planned nap in the afternoon lasting 1 to 2 hours. The nap is restorative. She denies dream enactment behavior. She denies sleepwalking. She consumes 1 to 2 cups of a caffeinated beverage per day. She denies tobacco and alcohol use. She denies exercising on a regular basis. [facility] Past Medical History Medical History Abnormal PFT Hypoxia Bronchitis Hyperlipidemia Avulsion of tendon of finger Encounter for dual-energy x-ray absoptiometry review Hepatitis C antibody test negative (06/28/16) Essential (primary) hypertension Prediabetes Pure hypercholesterolemia Surgical History Surgical History H/O colonoscopy H/O: section Family History Family History Father Diabetes mellitus Hypertension Family history of elevated blood lipids Family history of coronary artery disease Social History Social History Social History: Reports she quit smoking in 1994 - smoked 0.5 up to 1ppd x 10 years. She reports significant secondhand smoke exposure with both parents smoking in her home up until age 20 when she moved out. Denies alcohol or illicit drug use. She is retired from working for [employer] at [employer]. 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 Caffeine-daily Smoking packs per day: 1 Smoking cigarettes per day: 20.0 Smoking status: Former smoker Tobacco type: cigarettes Second hand tobacco smoke exposure: No Alcohol intake: never Substance use: never Substance use type: does not use Do You Feel Safe in your Home?: Yes Lack of Transportation: No Lack of Food: Never True Current Housing: I Have Housing Concerned About Future Housing: No Difficulty Paying Gas/Electric Bills: No Difficulty Paying for Meds: No Currently Unemployed: No Education: High School Diploma/GED Difficulty w/ Childcare or Family Care: No Living arrangements: with family Spiritual care concerns: No Medications Home Medications ?Medication ?Instructions ?Recorded ?Confirmed ?Type empagliflozin 10 mg tablet 10 mg PO DAILY 02/22/22 09/17/24 History (Jardiance) spironolactone 25 mg tablet 25 mg PO DAILY 02/22/22 09/17/24 History fluticasone furoate 50 1 inh inhalation DAILY COPD 1 06/03/24 09/17/24 Rx mcg-vilanterol 25 mcg/dose month #60 ea inhalation powder (Breo Ellipta) amitriptyline 10 mg tablet See Rx Instructions .Route 06/10/24 09/17/24 Rx .COMPLEX #180 tabs Ventolin HFA 90 mcg/actuation 2 puff inhalation Q4H PRN 07/03/24 09/17/24 Rx aerosol inhaler (albuterol sulfate) shortness of breath or wheezing #8 grams atorvastatin 20 mg tablet 20 mg PO QHS #90 tabs 08/09/24 09/17/24 Rx clonazepam 1 mg tablet 1 mg PO DAILY PRN anxiety #30 tabs 08/26/24 09/17/24 Rx betamethasone valerate 0.1 % lotion 1 applic topical BID PRN skin 09/17/24 09/17/24 Rx irritation #60 mL sertraline 100 mg tablet See Rx Instructions .Route 09/17/24 09/17/24 Rx .COMPLEX #90 tabs sertraline 25 mg tablet 25 mg PO DAILY #90 tabs 09/17/24 09/17/24 Rx metoprolol tartrate 100 mg tablet See Rx Instructions .Route 09/25/24 Rx .COMPLEX #90 tabs Sleep Procedure The sleep study was completed using QritiqrT a technically adequate device with seven channels: peripheral arterial tone, actigraphy, body position, snore, respiratory movement, pulse oximetry, sleep staging, and heart rate. Prior to using the device, the patient received verbal and written instructions for its application and was provided with the help desk phone number for additional telephonic instruction with 24-hour availability of qualified personnel to answer questions. The study was scored using CMS guidelines. Sleep Architecture The total recording time is 8 hrs, 38 min. The total sleep time is 7 hrs, 52 min. Sleep latency is 5 minutes. REM latency is 68 minutes. The patient had 10 episodes of waking. Sleep architecture shows 14.3% deep sleep, 62.3% light sleep, and (as % Total Sleep Time) showed NREM (Light 62.3%; Deep 14.3%), and a 23.4% stage REM. The patient spent 30.5% of total sleep time in the supine position. Sleep efficiency was 91.12. Respiratory Analysis The overall AHI (pAHI 4%:) is 2.8. The overall AHI (pAHI 3%:) is 12.1. The central AHI is 1.4. The AHI was 9.2 in NREM and 21.9 in REM sleep. The AHI was 17.2 in Supine and 9.9 in Non-supine sleep. Percent of Ephraim Capps respirations is 0.0. Oximetry Data The oxygen desaturation index (DANDY 4%:) is 3.2. The mean saturation is 90%, and the lowest saturation is 83%. Time spent with saturation < 88% is 8.2 minutes. Snoring Profile Snoring average intensity is 41 dB. The patient snored above 45 decibels for 5.8 minutes, 1.2% of sleep time. Cardiac Profile The average pulse rate is 81 beats per minutes. The lowest pulse rate is 66 bpm. The highest pulse rate reported is 103 bpm. Atrial fibrillation was not detected. Premature beats occur <0.1 per minute. Assessment and Plan Assessment and Plan (1) REN (obstructive sleep apnea): Code(s): G47.33 - Obstructive sleep apnea (adult) (pediatric) Status: Acute Assessment and Plan: The patient had an overall AHI of 2.8 with desaturation down to 83%. This is not consistent with sleep-disordered breathing. Her mandibular advancement device is fully treated her sleep apnea, despite snoring being present. If the patient's oral appliance could be titrated further to correct the snoring, I recommend doing that. If titrating the oral appliance further does not correct her excessive daytime sleepiness, I recommend that she talk with her sleep medicine physician about alternative therapies. Data The data obtained during this sleep study is adequate for interpretation. Certification This sleep study has been reviewed by a board certified sleep medicine physician.
== END 2024-10-10 13:09 | disposition home or self-care (01) ==
PROVIDERS: PCP Family Medicine; Visit Provider Family Medicine
DX: G47.33 Obstructive sleep apnea (adult) (pediatric) (principal)
CPT/HCPCS: 95800

== ENCOUNTER 2024-11-11 10:28 | Outpatient (CLI) | payer MEDICARE, OTHER, SELFPAY ==
--- NOTE | ~2024-11-11 | MM_ITS ---
EXAMINATION: MM diagnostic digna LT w michelet INDICATION: 73-year old female; 6 month follow up probably benign low-density mass in the upper inner left breast at middle third initially evaluated on 05/14/2024. COMPARISON: 05/14/2024 through 11/13/2019. TECHNIQUE: Left breast Digital breast tomosynthesis ML and spot compression in CC and MLO views were obtained with computer-aided detection to assist in interpretation of the study. FINDINGS: The breasts are heterogeneously dense, which may obscure small masses. The low-density mass of concern in the upper inner left breast at middle third redemonstrated is Unchanged. IMPRESSION: Probably benign mass in the left breast have demonstrated approximately 6 months stability since initial discovery. RECOMMEND: Diagnostic bilateral mammogram in 6 months. BI-RADS 3, PROBABLY BENIGN Reviewed, dictated and finalized at location B. IMPRESSION: Probably benign mass in the left breast have demonstrated approxim ately 6 months stability since initial discovery. RECOMMEND: Diagnostic bilateral mammogram in 6 months. BI-RADS 3, PROBABLY BENIGN
--- OUTSIDE RECORDS SUMMARY | 2024-11-11 11:21 | XMS_ITS | Clinical Summary ---
Author Organization [facility] Address [address] [place] [address] Care Team Providers Care Appellate Law Clerk Name Role Phone AloopalRenae coe Primary Care Provider [phone] Allergies No known active allergies Medications amitriptyline [...] 1 TABLET VAGINALLY WEEKLY 01/01/20 22 Active sertraline (ZOLOFT) 100 mg [...] AND SPIT AFTER USE 06/08/19 24 Active spironolactone (ALDACTONE) 25 mg tablet TAKE 1 TABLET(25 MG) BY MOUTH DAILY 90 tablet 07/23/19 25 Active budesonide-for moteroL (SYMBICORT) 160-4.5 mcg/actuation inhaler 02/23/20 22 Active amLODIPine (NORVASC) 10 mg tablet Take 1 tablet (10 mg total) by mouth daily 90 tablet 6 09/26/19 25 026 Active Jardiance 10 mg tablet TAKE 1 TABLET(10 MG) BY MOUTH DAILY 90 tablet 10/15/19 25 Active empagliflozin (Jardiance) 10 mg tablet TAKE 1 TABLET(10 MG) BY MOUTH DAILY 90 tablet 06/13/19 25 025 Discontinued Active Problems No known active problems Encounters Date Type Department Care Team Description 09/25/2024 9:15 AM CDT Office Visit [facility] Medical Group Cardiology [address] [place] [address] David Ivory MD Essential hypertension (Primary Dx); [...] - Respiratory Rate 15 02/07/2022 10:06 AM ACOUSTIC INTELLIGENCE SPECIALIST Oxygen Saturation 96% 09/25/2024 9:17 AM CDT [...] Capillary blood 09/25/2024 9 :23 AM CDT us David Ivory MD POINT OF CARE TEST ORDERABLES Fi nal Result from Last 3 Months Insurance MEDICARE [facility] MEDICARE [facility] [id number] Care Teams Appellate Law Clerk Relationship Specialty Start Date End Date Renae An DO PCP - General Family Medicine 02/04/22
== END 2024-11-11 10:29 | disposition home or self-care (01) ==
LOC: CHSIMG 10:29
PROVIDERS: PCP Family Medicine; Visit Provider Nurse Practitioner
DX: N63.22 Unspecified lump in the left breast, upper inner quadrant (principal)
CPT/HCPCS: 77061; 77065; G0279